=== PATIENT | female | born 1990 | race Caucasian/White ===

== ENCOUNTER 2021-07-16 18:59 | Emergency (ER) | payer OTHER, SELFPAY ==
--- OUTSIDE RECORDS SUMMARY | 2021-07-16 19:02 | XMS REPORT | Continuity of Care Document ---
:1990 Author Organization [facility] t Address [address] [place] [address] Care Team Providers Name Role Phone PAPO Primary Care Physician RAJAN Attending Clinician Unavailable Bryant VILLARREAL Attending Clinician Unavailable RAJAN Admitting Clinician Unavailable Bryant VILLARREAL Admitting Clinician Unavailable Problems Condition Condition Condition Status Onset Resolution Last Treating Co mments Source Name Details Category Date Date Treatment Clinician Date Gastritis Gastritis Problem [facility] (LUF/LI V/SA) Nausea and Nausea and Problem Active [facility] vomiting [facility] (LUF/LI V/SA) Knee pain Knee pain Problem [facility] (LUF/LI V/SA) Leukocytos Leukocytos Problem Active [facility] is is [facility] (LUF/LI V/SA) Ureteric Ureteric Problem [facility] (LUF/LI V/SA) Chest wall Chest wall Problem Active [facility] pain pain 9[facility]02 [facility] (LUF/LI V/SA) Acute Acute Problem Active [facility] urinary urinary [facility]10 [facility] - tract tract 03:00: Memoria infection infection 00 l (LUF/LI V/SA) Sprain of Sprain of Problem Active 2014-07 [facility] ankle ankle 0-25 [facility] - [facility]: [facility] (LUF/LI V/SA) [facility] - following following 00:00: Santy huey previous previous 00 l (LUF/L I section section V/SA) Abdominal Abdominal Problem Complet I St pain in pain in ed 11-14 [facility] - 00:[facility]: Santy huey 00 l (LUF/LI V/SA) Chest pain Chest pain Problem Active [facility] - [facility] (LUF/LI V/SA) Allergies, Adverse Reactions, Alerts This patient has no known allergies or adverse reactions. Social History Smoking Status Start Date Stop Date Source Never smoker [facility] ([facility]U/[facility]) Medications Ordered Filled Start Stop Current Ordering Indication Dosage Frequency Signature Comments Components Source Medication Medication Date Date Medication? Clinician (SIG) Name Name ondansetron ondansetron Yes 4mg 3xD [facility] (LUF/LI V/SA) ondansetron ondansetron Yes 4mg 3xD orally [facility] - hours as Memoria needed. l (for (LUF/LI nausea/vom V/SA) iting) ondansetron ondansetron No 4mg 3xD orally [facility] - hours [facility] l (LUF/LI V/SA) tramadol tramadol No 50mg 4xD orally [facility] hydrochlori hydrochlori every 6 [facility] - de 50 MG de 50 MG hours as Mem oria Oral Tablet Oral Tablet needed. l (as needed (LUF/LI for pain) V/SA) Immunizations Ordered Immunization Filled Immunization Date Status Commen ts Source Name Name tetanus toxoid, tetanus toxoid, 2012-12-31 Completed [facility] - reduced diphtheria reduced diphtheria 13:20:00 [facility] toxoid, and toxoid, and (LUF/MARILU/SA) acellular pertussis acellular pertussis vaccine, adsorbed vaccine, adsorbed Vital Signs Vital Name Observation Time Observation Value Comments Source Pulse Rate 2020-12-25 09:01:00 86 /min [facility] L [facility] (LUF/MARILU/SA) Respiratory Rate 2020-12-25 09:01:00 18 /min [facility] (LUF/MARILU/SA) O2% BldC Oximetry 2020-12-25 09:01:00 100 % [facility] (LUF/MARILU/SA) BP Systolic 2020-12-25 09:01:00 109 mm[Hg] [facility] (LUF/MARILU/SA) BP Diastolic 2020-12-25 09:01:00 67 mm[Hg] [facility] (LUF/MARILU/SA) Body Temperature 2020-12-25 07:51:00 97.7 [degF] [facility] (LUF/MARILU/SA) Height 2020-12-25 07:51:00 62 [in_i] [facility] (LUF/MARILU/SA) Weight 2020-12-25 07:51:00 165 [lb_av] [facility] (LUF/MARILU/SA) BMI (Body Mass Index) 2020-12-25 07:51:00 30.3 kg/m2 [facility] (LUF/MARILU/SA) Body Temperature 2020-12-10 18:00:00 98 [degF] [facility] (LUF/MARILU/SA) Pulse Rate 2020-12-10 17:30:00 70 /min [facility] (LUF/MARILU/SA) O2% BldC Oximetry 2020-12-10 17:30:00 100 % [facility] (LUF/MARILU/SA) BP Systolic 2020-12-10 17:30:00 105 mm[Hg] [facility] (LUF/MARILU/SA) BP Diastolic 2020-12-10 17:30:00 74 mm[Hg] [facility] (LUF/MARILU/SA) Respiratory Rate 2020-12-10 13:13:00 18 /min [facility] (LUF/MARILU/SA) Height 2020-12-10 13:13:00 63 [in_i] [facility] (LUF/MARILU/SA) Weight 2020-12-10 13:13:00 78.3 kg [facility] (LUF/MARILU/SA) BMI (Body Mass Index) 2020-12-10 13:13:00 30.5 kg/m2 [facility] (LUF/MARILU/SA) Procedures Procedure Date / Time Performed Performing Clinician [facility] e SECTION WITH 2014-08-19 08:59:00 [facility] BILATERAL TUBAL [facility] (Bilateral) (LUF/MARILU/SA) SECTION 2012-12-31 08:09:00 [facility] s [facility] (LUF/MARILU/SA) Low cervical [facility] [place] es - section [facility] (LUF/MARILU/SA) Appendectomy [facility] (LUF/MARILU/SA) EXP LAP [facility] (LUF/MARILU/SA) Encounters Start End Encounter Admission Attending Care Care Encounter Source Date/Time Date/Time Type Type Clinicians Facility Department ID 2020-12-25 2020-12-25 GASTRITIS ADDIS CULVER [facility] [id number] 07:40:00 09:31:00 UNS PILI crane - WITHOUT N, [address] [place], [place] [address] 2020-12-25 2020-12-25 Inpatient [facility] [id number] [facility] 00:[facility]:00 PILI BRAUN [id number] [facility], [id number] [place], [place] [address] 2020-12-10 2020-12-10 FOLLICULAR ADDIS CULVER [facility] [id number] 12:47:00 18:00:00 CYST OF PILI crane - LEFT OVARY N, [address] [place], ([place] [address] 2020-12-10 2020-12-10 Inpatient [facility] [id number] 00:[facility]:00 00:00:00 PILI BRAUN [id number] [facility], [id number] [id number] [place], ([place] [address] 2020-12-10 2020-12-10 Inpatient [facility] [id number] 00:00:00 00:00:00 PILI BRAUN [id number] [facility], [id number] [place], ([place] [address] Results Test Description Test Time Test Comments Results Result Comments Source URINALYSIS WITH MICROSCOPIC 2020-12-25 09:10:00 Test Item Value Reference Range Interpretation Comme nts Color (test code = UCOLR) Yellow Clarity (test code = UCLAR) Sl Cloudy Glucose (test code = UGLUC) NEGATIVE NEGATIVE N Bilirubin (test code = UBILI) SMALL NEGATIVE A Ketones (test code = UKET) 15 NEGATIVE A Specific [place] (test code = >=1.030 1.005-1.030 A USPGR) Blood (test code = UBLD) NEGATIVE NEGATIVE N PH (test code = UPH) 5.5 4.5-8.0 A Protein (test code = UPROT) TRACE NEGATIVE A Urobilinogen (test code = U 0.2 See_Comment N [Automated message] The UROB) system which ge nerated this result transmit roula reference range: 0.2. The reference range was not u sed to interpret this result as normal/abnormal . Nitrite (test code = UNITR) NEGATIVE NEGATIVE N Leukocyte Esterase (test code SMALL NEGATIVE A = ULEUK) WBC (test code = WBCUR) 10-20 0-5 A RBC (test code = RBCUR) 0-10 0-5 A Epithial Cells (test code = U 10-20 0-10 A EPI) Mucous (test code = UMUC) Trace None Seen A Bacteria (test code = UBACT) 1+ None Seen,Trace A [id number] 08:53:00 Test Item Value Reference Range Interpretation Comments Glucose (test code 132 mg/dl 75-110 H = GLU) BUN (test code = 18.0 mg/dl 6.0-17.0 H BUN) Creatinine (test 0.7 mg/dl 0.4-1.2 code = CREA) Sodium (test code = 137 mmol/l 137-145 NA) Potassium (test 3.7 mmol/l 3.5-5.0 code = K) Chloride (test code 108 mmol/l 98-107 H = CL) CO2 (test code = 23 mmol/l 22-30 CO2) Calcium (test code 8.6 mg/dl 8.4-10.2 = CALC) T Protein (test 8.1 gm/dl 5.1-8.7 code = TP) Albumin (test code 3.7 gm/dl 3.5-4.6 = ALB) A/G Ratio (test 0.8 % 1.1-2.2 L code = AGRAT) AST (SGOT) (test 10 U/L 11-36 L code = AST) ALT (SGPT) (test 28 U/L 11-40 code = ALT) Alkaline Phos (test 74 U/L 47-114 code = ALKP) Total Bilirubin 0.7 mg/dl 0.2-1.2 (test code = TBIL) Globulin (test code 4.4 gm/dl 2.3-3.5 H = GLOBU) Calcium, Corrected 8.8 mg/dl 8.4-10.2 Various f ormulas exist (test code = for corrected s rui CALCCORR) calcium results , each yielding differ ent values. This corrected resul t was based on the fo rmula: Corrected Calci um = SerumCalcium + [0.8 * ( 4 - SerumAlbu min)] EGFR if >60 [place] (test code mL/min/1.73m\\ = EGFRAA) S\\2 EGFR if Non- >60 Estimate d Glomerular [place] (test code mL/min/1.73m\\ Filtrat ion Rate (eGFR) = EGFRNA) S\\2 Reference Inter vals Decision Points for 18 years and older and average body ma ss: >= 60 Does not exc lude kidney disease. 30 - 59 Suggests modera te chronic kidney disease and indicat es the need for furthe r investigation including asses sment of proteinuria and cardiovascular factors. < 30 Usually in dicates a need for refe rral for assessment and management of c hronic kidney failure. [id number] 08:53:00 Test Item Value Reference Range Interpretation Comments Lipase (test code = LIPA) 150 U/L 8-223 TEST, Urine [id number] 08:41:00 Test Item Value Reference Range Interpretation Comments (Urine) (test code = Negative PREGU) CBC WITH AUTO [id number] 08:30:00 Test Item Value Reference Range Interpretation Comments WBC (test code = 11.93 4.80-10.80 H WBC) 10\\S\\3/ul RBC (test code = 5.08 10\\S\\6/ul 4.20-5.40 RBC) Hemoglobin (test 14.2 gm/dl 12.0-14.0 H code = HGB) Hematocrit (test 42.7 % 37.0-47.0 code = HCT) MCV (test code = 84.1 fL 81.0-99.0 MCV) MCH (test code = 28.0 pg 27.0-31.0 MCH) MCHC (test code = 33.3 gm/dl 33.0-37.0 MCHC) RDW (test code = 12.5 % 11.5-14.5 RDWVC) Platelet (test code 234 10\\S\\3/ul 130-400 = PLT) MPV (test code = 11.6 fL 7.4-10.4 A "NOT MEASUR ED" MPV) RESULTS ARE DIS PLAYED WHEN THE INSTRU MENT HAS A SUPPRESSE D OR UNREPORTABLE RE SULT. THIS WILL MOST OFTEN HAPPEN WITH THE MPV WHEN THERE IS A N ABNORMAL PLATEL ET DISTRIBUTION DU E TO A CRITICAL LOW VA LUE OR PLATELET CLUMPI NG. THE RDW MAY BE SUPPRESSED IF T HERE ARE MULTIPLE PE AKS PRESENT ON THE RBC HISTOGRAM. IN THIS CASE, A MANUAL REVIEW OF THE SLIDE WI LL BE PERFORMED, AND RBC MORPHOLOGY WILL BE NOTED ON THE RE PORT. NE% (test code = 89.0 % 42.0-75.0 H NE) LY% (test code = 4.2 % 13.0-42.0 L LY) MO% (test code = 5.2 % 4.0-14.0 MO) EO% (test code = 0.8 % 1.0-5.0 L EO) BA% (test code = 0.4 % 0.0-3.0 BA) IG% (test code = 0.4 % 0.0-0.4 IG%) US INTRAVAGINAL [id number] 18:19:47 [facility])Name: MAT CHRISTINA : 1990 Sex: FEXAM: Transabdominal and Transvaginal Pelvic UltrasoundINDICATION: [id number]: Ab dominal [id number]: NoneTECHNIQUE: Grayscale transverse and sagittal transabdominal and transvaginalimages were obtained of the pelvis. Transvaginal imaging was medically necessaryto better evaluate the endometrium and the adnexa.CLINICAL HISTORY:30 year old A 1 last menstrual period: Approximately 2 weeks ago .FINDINGS:UterusOrientation: Normal.Size: 9.1 x 4.5 x 3.5 cm, .Mass: None.Cervix: Normal.Endometrium:Thickness: 0.8 cm, Normal.Appearance: Homogeneous echotexture without focal thickening.Right ovary:Size: 2.5 x 2.3 x 1.7 cmMass/Cyst: Follicle seen measuring 1 cm.Left ovary:Size: 2.5 x 2.4 x 1.9 cmMass/Cyst: Follicle noted measuring 1.6 cm with thin septation. Anotherfollicles seen measuring 1.5 cm. These are likely physiologic.Adnexa: [id number]-dp-cpq: No significant free fluidIMPRESSION:Unremarkable pelvic ultrasound exam.Ovary volume: L x W x H x 0.523Normal = 5 - 15 mLFollicle - simple < 2.5 cmComplex cyst - any size<30 yo no flow - hemorrhagic>30 FollowPostmeno - bleeding >8mm ABNLPostmeno + bleeding <2mm atrophy and > 5mm random bxNeg bx then sonohysFibroid > 10cm or hetero give sarc disclaimerThis final report was electronically signed by Dale Pressley 12/10/2020 6:14 PMDictated By: DALE PRESSLEYDate: 12/10/2020 18:14US PELVIS [id number] 17:46:01 [facility]Name: MAT CHRISTINA : 1990 Sex: FEXAM: Transabdominal and Transvaginal Pelvic UltrasoundINDICATION: [id number]: Pain in .0278.3NCOMPARISON: NoneTECHNIQUE: Grayscale transverse and sagittal transabdominal and transvaginalimages were obtained of the pelvis. Transvaginal imaging was medically necessaryto better evaluate the endometrium and the adnexa.CLINICAL HISTORY:30 year old A 1 last menstrual period: Approximately 2 weeks ago .FINDINGS:UterusOrientation: Normal.Size: 9.1 x 4.5 x 3.5 cm, .Mass: None.Cervix: Normal.Endometrium:Thickness: 0.8 cm, Normal.Appearance: Homogeneous echotexture without focal thickening.Right ovary:Size: 2.5 x 2.3 x 1.7 cmMass/Cyst: Follicle seen measuring 1 cm.Left ovary:Size: 2.5 x 2.4 x 1.9 cmMass/Cyst: Follicle noted measuring 1.6 cm with thin septation. Anotherfollicles seen measuring 1.5 cm. These are likely physiologic.Adnexa: ZxnyipUtb-je-lhq: No significant free fluidIMPRESSION:Unremarkable pelvic ultrasound exam.Ovary volume: L x W x H x 0.523Normal = 5 - 15 mLFollicle - simple < 2.5 cmComplex cyst - any size<30 yo no flow - hemorrhagic>30 FollowPostmeno - bleeding >8mm ABNLPostmeno + bleeding <2mm atrophy and > 5mm random bxNeg bx then sonohysFibroid > 10cm or hetero give sarc disclaimerThis final report was electronically signed by Dale Pressley 12/10/2020 5:40 PMDictated By: DALE PRESSLEYDate: 12/10/2020 17:40URINALYSIS WITH [id number] 15:44:00 Test Item Value Reference Range Interpretation Comments Color (test code = Lt. Yellow UCOLR) Clarity (test code = Clear UCLAR) Glucose (test code = NEGATIVE NEGATIVE N UGLUC) Bilirubin (test code = NEGATIVE NEGATIVE N UBILI) Ketones (test code = NEGATIVE NEGATIVE N UKET) Specific [place] (test 1.020 1.005-1.030 A code = USPGR) Blood (test code = NEGATIVE NEGATIVE N UBLD) PH (test code = UPH) 7.0 4.5-8.0 A Protein (test code = NEGATIVE NEGATIVE N UPROT) Urobilinogen (test 0.2 See_Comment N [Automat ed message] code = U UROB) The system [employer] generated this result transmitted ref erence range: 0.2. The reference range was not used to int erpret this result as normal/abnormal . Nitrite (test code = NEGATIVE NEGATIVE N UNITR) Leukocyte Esterase SMALL NEGATIVE A (test code = ULEUK) WBC (test code = 5-10 0-5 A WBCUR) RBC (test code = None Seen 0-5 A RBCUR) Epithial Cells (test 0-5 0-10 A code = U EPI) Bacteria (test code = Trace None Seen,Trace N UBACT) TEST, Urine [id number] 15:32:00 Test Item Value Reference Range Interpretation Comments (Urine) (test code = Negative PREGU) [id number] 15:17:00 Test Item Value Reference Range Interpretation Comments Lipase (test code = LIPA) 172 U/L 8-223 [id number] 15:17:00 Test Item Value Reference Range Interpretation Comments Glucose (test code 84 mg/dl 75-110 = GLU) BUN (test code = 15.0 mg/dl 6.0-17.0 BUN) Creatinine (test 0.7 mg/dl 0.4-1.2 code = CREA) Sodium (test code = 138 mmol/l 137-145 NA) Potassium (test 4.0 mmol/l 3.5-5.0 code = K) Chloride (test code 108 mmol/l 98-107 H = CL) CO2 (test code = 26 mmol/l 22-30 CO2) Calcium (test code 8.8 mg/dl 8.4-10.2 = CALC) T Protein (test 8.1 gm/dl 5.1-8.7 code = TP) Albumin (test code 3.8 gm/dl 3.5-4.6 = ALB) A/G Ratio (test 0.9 % 1.1-2.2 L code = AGRAT) AST (SGOT) (test 18 U/L 11-36 code = AST) ALT (SGPT) (test 32 U/L 11-40 code = ALT) Alkaline Phos (test 75 U/L 47-114 code = ALKP) Total Bilirubin 0.4 mg/dl 0.2-1.2 (test code = TBIL) Globulin (test code 4.3 gm/dl 2.3-3.5 H = GLOBU) Calcium, Corrected 9.0 mg/dl 8.4-10.2 Various f ormulas exist (test code = for corrected s rui CALCCORR) calcium results , each yielding differ ent values. This corrected resul t was based on the fo rmula: Corrected Calci um = SerumCalcium + [0.8 * ( 4 - SerumAlbu min)] EGFR if >60 [place] (test code mL/min/1.73m\\ = EGFRAA) S\\2 EGFR if Non- >60 Estimate d Glomerular [place] (test code mL/min/1.73m\\ Filtrat ion Rate (eGFR) = EGFRNA) S\\2 Reference Inter vals Decision Points for 18 years and older and average body ma ss: >= 60 Does not exc lude kidney disease. 30 - 59 Suggests modera te chronic kidney disease and indicat es the need for furthe r investigation including asses sment of proteinuria and cardiovascular factors. < 30 Usually in dicates a need for refe rral for assessment and management of c hronic kidney failure. CBC WITH AUTO [id number] 15:07:00 Test Item Value Reference Range Interpretation Comments WBC (test code = 7.39 10\\S\\3/ul 4.80-10.80 WBC) RBC (test code = 4.99 10\\S\\6/ul 4.20-5.40 RBC) Hemoglobin (test 14.0 gm/dl 12.0-14.0 code = HGB) Hematocrit (test 42.9 % 37.0-47.0 code = HCT) MCV (test code = 86.0 fL 81.0-99.0 MCV) MCH (test code = 28.1 pg 27.0-31.0 MCH) MCHC (test code = 32.6 gm/dl 33.0-37.0 L MCHC) RDW (test code = 12.2 % 11.5-14.5 RDWVC) Platelet (test code 253 10\\S\\3/ul 130-400 = PLT) MPV (test code = 11.4 fL 7.4-10.4 A "NOT MEASUR ED" MPV) RESULTS ARE DIS PLAYED WHEN THE INSTRU MENT HAS A SUPPRESSE D OR UNREPORTABLE RE SULT. THIS WILL MOST OFTEN HAPPEN WITH THE MPV WHEN THERE IS A N ABNORMAL PLATEL ET DISTRIBUTION DU E TO A CRITICAL LOW VA LUE OR PLATELET CLUMPI NG. THE RDW MAY BE SUPPRESSED IF T HERE ARE MULTIPLE PE AKS PRESENT ON THE RBC HISTOGRAM. IN THIS CASE, A MANUAL REVIEW OF THE SLIDE WI LL BE PERFORMED, AND RBC MORPHOLOGY WILL BE NOTED ON THE RE PORT. NE% (test code = 62.3 % 42.0-75.0 NE) LY% (test code = 27.7 % 13.0-42.0 LY) MO% (test code = 7.3 % 4.0-14.0 MO) EO% (test code = 1.6 % 1.0-5.0 EO) BA% (test code = 0.8 % 0.0-3.0 BA) IG% (test code = 0.3 % 0.0-0.4 IG%) TEST, Urine [id number] 18:47:00 Test Item Value Reference Range Interpretation Comments (Urine) (test code = Negative PREGU) If a specimen is collected by a nurse, then you MUST fill out the Collected and Collected By louis CULTURE, [id number] 07:51:00 Specimen: Urine SpecimensCollected: 09/27/2016 13:15 Status: Final Last Updated: 09/29/2016 07:51 Culture Result (Final) (Final) Moderate Mixed Body Kassy Isolated No Pathogens IsolatedCBC WITH AUTO [id number] 17:14:00 Test Item Value Reference Range Interpretation Comments WBC (test code = WBC) 19.7 k/ul 4.8-10.8 H RBC (test code = RBC) 4.85 4.20-5.40 Millions/ul Hemoglobin (test code 13.3 gm/dl 12.0-14.0 = HGB) Hematocrit (test code 39.9 % 37.0-47.0 = HCT) MCV (test code = MCV) 82.3 fL 81.0-99.0 MCH (test code = MCH) 27.3 pg 27.0-31.0 MCHC (test code = 33.2 gm/dl 33.0-37.0 MCHC) RDW (test code = 13.7 % 11.5-14.5 RDWVC) Platelet (test code = 195 k/ul 130-400 PLT) MPV (test code = MPV) 10.3 fL 7.4-10.4 NE% (test code = NE) 91.8 % 42.0-75.0 H LY% (test code = LY) 5.7 % 13.0-42.0 L MO% (test code = MO) 2.1 % 4.0-14.0 L EO% (test code = EO) 0.2 % 1.0-3.0 L BA% (test code = BA) 0.2 % 1.0-3.0 L NRBC, Auto (test code 0 /100WBC 0-0 = NRBC_AUTO) Neutrophils (test 87 % 42-75 H The value no value code = NEUTR) originally rel eased by on ############### was changed to 87 b y [id number] on 09/27/2016 17:1 4 Bands (test code = 2 % 0-2 The value no value BANDM) originally rele ased by on ############### was changed to 2 by [id number] on 09/27/2016 17:1 4 Lymphocytes (test 7 % 13-42 L The value no value code = LYMPH) originally rel eased by on ############### was changed to 7 by [id number] on 09/27/2016 17:1 4 Monocytes (test code 3 % 4-14 L The col[place] ue no value = MONOS) originally rele ased by on ############### was changed to 3 by [id number] on 09/27/2016 17:1 4 Basophils (test code 1 % 0-1 The [place] no value = BASO) originally rele ased by on ############### was changed to 1 by [id number] on 09/27/2016 17:1 4 LIPASE, [id number] 15:59:00 Test Item Value Reference Range Interpretation Comments Lipase (test code = LIPA) 139 U/L 8-223 AMYLASE, [id number] 15:59:00 Test Item Value Reference Range Interpretation Comments Amylase (test code = AMYL) 98 U/L 12-103 [id number] 15:59:00 Test Item Value Reference Range Interpretation Comments Glucose (test code 139 mg/dl 75-110 H = GLU) BUN (test code = 14.0 mg/dl 6.0-17.0 BUN) Creatinine (test 0.6 mg/dl 0.4-1.2 code = CREA) Sodium (test code = 140 mmol/l 137-145 NA) Potassium (test 4.2 mmol/l 3.5-5.0 code = K) Chloride (test code 103 mmol/l 98-107 = CL) CO2 (test code = 25 mmol/l 22-30 CO2) Anion Gap (test 12 code = GAP) Calcium (test code 8.5 mg/dl 8.4-10.2 = CALC) T Protein (test 8.2 gm/dl 5.1-8.7 code = TP) Albumin (test code 4.4 gm/dl 3.5-4.6 = ALB) A/G Ratio (test 1.2 % 1.1-2.2 code = AGRAT) AST (SGOT) (test 32 U/L 11-36 code = AST) ALT (SGPT) (test 49 U/L 11-40 H code = ALT) Alkaline Phos (test 70 U/L 47-114 code = ALKP) Total Bilirubin 0.6 mg/dl 0.2-1.2 (test code = TBIL) Globulin (test code 3.8 gm/dl 2.3-3.5 H = GLOBU) Calcium, Corrected 8.2 mg/dl 8.4-10.2 L Various f ormulas exist (test code = for corrected s rui CALCCORR) calcium results , each yielding differ ent values. This corrected resul t was based on the fo rmula: Corrected Calci um = SerumCalcium + [0.8 * ( 4 - SerumAlbu min)] EGFR if >60 [place] (test code mL/min/1.73m\\ = EGFRAA) S\\2 EGFR if Non- >60 Estimate d Glomerular [place] (test code mL/min/1.73m\\ Filtrat ion Rate (eGFR) = EGFRNA) S\\2 Reference Inter vals Decision Points for 18 years and older and average body ma ss: >= 60 Does not exc lude kidney disease. 30 - 59 Suggests modera te chronic kidney disease and indicat es the need for furthe r investigation including asses sment of proteinuria and cardiovascular factors. < 30 Usually in dicates a need for refe rral for assessment and management of c hronic kidney failure. TEST, Serum [id number] 15:59:00 Test Item Value Reference Range Interpretation Comments (Serum) (test code = Negative Negative N PREGS) URINALYSIS WITH [id number] 14:39:00 Test Item Value Reference Range Interpretation Comments Color (test code = Lt. Yellow UCOLR) Clarity (test code = CLEAR UCLAR) Glucose (test code = NEGATIVE NEGATIVE N UGLUC) Bilirubin (test code = NEGATIVE NEGATIVE N UBILI) Ketones (test code = NEGATIVE NEGATIVE N UKET) Specific [place] (test 1.015 1.005-1.030 A code = USPGR) Blood (test code = UBLD) MODERATE NEGATIVE A PH (test code = UPH) 7.0 4.5-8.0 A Protein (test code = NEGATIVE NEGATIVE N UPROT) Urobilinogen (test code 0.2 >0.2 N = U UROB) Nitrite (test code = NEGATIVE NEGATIVE N UNITR) Leukocyte Esterase (test NEGATIVE NEGATIVE N code = ULEUK) WBC (test code = WBCUR) 0-3 0-5 A RBC (test code = RBCUR) 20-30 0-5 A Epithial Cells (test 5-10 0-10 A code = U EPI) Mucous (test code = Trace None Seen A UMUC) Bacteria (test code = Trace None Seen,Trace N UBACT) Crystals Urine (test Trace Amorphous None Seen A code = URCRYS) Sediment
[2021-07-16 21:03] LABS: SARS-COV-2 RT PCR POSITIVE (NEGATIVE)
[2021-07-16] MEDS ORDERED: ACETAMINOPHEN 500 MG TAB ONE (21:03)
[2021-07-16] MEDS ORDERED: BENZONATATE 100 MG CAP PO ONE (21:11)
--- NOTE | 2021-07-16 21:56 | ER ---
Nurse's Notes [facility] Name: Melony Borjas Age: 31 yrs Sex: Female : 1990 Arrival Date: 07/16/2021 Time: 19:00 Bed 11 Private MD: Diagnosis: SARS-associated coronavirus as the cause of diseases classified elsewhere Presentation: 07/16 19:12 Chief complaint: Patient states: sore throat, body aches, headache, started yesterday. iw Coronavirus screen: Ebola Screen: Patient negative for fever greater than or equal to 101.5 degrees Fahrenheit, and additional compatible Ebola Virus Disease symptoms Patient denies exposure to infectious person. Patient denies travel to an Ebola-affected area in the 21 days before illness onset. No symptoms or risks identified at this time. Initial Sepsis Screen: Does the patient meet any 2 criteria? No. Patient's initial sepsis screen is negative. Does the patient have a suspected source of infection? No. Patient's initial sepsis screen is negative. Risk Assessment: Do you want to hurt yourself or someone else? Patient reports no desire to harm self or others. Onset of symptoms was July 15, 2021. 19:12 Method Of Arrival: Ambulatory iw 19:12 Acuity: RUSTY 4 iw 19:16 Acuity: RUSTY 3 iw Triage Assessment: 19:15 General: Appears in no apparent distress. Behavior is calm. iw Historical: - Allergies: 19:14 Demerol; iw - PMHx: 19:15 GI issues; iw - PSHx: 19:15 section; iw 19:15 Appendectomy; iw - Immunization history:: Client reports having NOT received the Covid vaccine. - Social history:: Smoking status: . Screenin:15 Abuse screen: Denies threats or abuse. Denies injuries from another. Nutritional iw screening: No deficits noted. Tuberculosis screening: No symptoms or risk factors identified. Fall Risk None identified. Assessment: 21:00 General: Appears in no apparent distress. General: Reports chills for fever for feeling iw ill for fatigue for. Neuro: Level of Consciousness is awake, alert, obeys commands, Oriented to person, place, time, situation, Moves all extremities. Full function. Cardiovascular: Patient's skin is warm and dry. Respiratory: Respiratory effort is even, unlabored, Respiratory pattern is regular, symmetrical. Derm: Skin is intact, is healthy with good turgor. Musculoskeletal: Range of motion: intact in all extremities. Vital Signs: 19:12 Pulse 130; Resp 18; Temp 100.8; Pulse Ox 99% ; Weight 68.04 kg; Height 5 ft. 3 in. iw (160.02 cm); 19:16 BP 108 / 73; iw 20:44 Temp 101.7(TE); iw 19:12 Body Mass Index 26.57 (68.04 kg, 160.02 cm) iw ED Course: 19:00 Patient arrived in ED. ds1 19:14 Triage completed. iw 19:15 Arm band placed on. iw 21:02 Robert Marie PA is PHCP. cp 21:02 Julien Mittal MD is Attending Physician. cp 21:10 Tiffanie Verduzco, KEISHA is Primary Nurse. iw 22:10 No provider procedures requiring assistance completed. Patient did not have IV access iw during this emergency room visit. Administered Medications: 21:10 Drug: Tylenol 1000 mg Route: PO; iw 22:00 Follow up: Response: No adverse reaction iw 21:12 Drug: Tessalon Perle (benzonatate) 200 mg Route: PO; iw 21:35 Follow up: Response: No adverse reaction iw Outcome: 21:56 Discharge ordered by MD. cp 22:11 Discharged to home ambulatory. iw 22:11 Condition: good 22:11 Discharge instructions given to patient, Instructed on discharge instructions, follow up and referral plans. Demonstrated understanding of 22:12 Patient left the ED. iw Signatures: Hanh Westbrook ds1 Tiffanie Verduzco RN RN iw Robert Marie PA PA cp Corrections: (The following items were deleted from the chart) 19:15 19:12 Resp 18bpm; Pulse Ox 99%; Temp 99.4F; 68.04 kg; Height 5 ft. 3 in.; BMI: 26.5; iw iw
--- NOTE | 2021-07-16 21:57 | EDPHYS ---
Physician Documentation [facility] Name: Melony Borjas Age: 31 yrs Sex: Female : 1990 Arrival Date: 07/16/2021 Time: 19:00 Bed 11 Private MD: ED Physician Julien Mittal HPI: 07/16 21:30 This 31 yrs old Female presents to ER via Ambulatory with complaints of Fever. cp 21:30 The patient reports fever, with an emergency department temperature of 101.7 degrees cp Fahrenheit. Onset: The symptoms/episode began/occurred yesterday. Associated signs and symptoms: Pertinent positives: cough, headache, runny nose, sore throat, body aches. Severity of symptoms: in the emergency department the symptoms are unchanged despite home interventions. Historical: - Allergies: 19:14 Demerol; iw - PMHx: 19:15 GI issues; iw - PSHx: 19:15 section; iw 19:15 Appendectomy; iw - Immunization history:: Client reports having NOT received the Covid vaccine. - Social history:: Smoking status: . ROS: 21:33 Constitutional: Positive for body aches, fever, Negative for poor PO intake. cp 21:33 ENT: Positive for sore throat, Negative for drainage from ear(s), ear pain, difficulty cp swallowing, difficulty handling secretions. 21:33 Respiratory: Positive for cough, Negative for wheezing. 21:33 Abdomen/GI: Negative for abdominal pain, vomiting, diarrhea, constipation. 21:33 Neuro: Positive for headache, Negative for altered mental status, weakness. 21:33 All other systems are negative. Exam: 21:38 Constitutional: The patient appears in no acute distress, alert, awake, non-toxic, well cp developed, well nourished, febrile. 21:38 Head/Face: Normocephalic, atraumatic. cp 21:38 Eyes: Periorbital structures: appear normal, Conjunctiva: normal, no exudate, no injection, Lids and lashes: appear normal, bilaterally. 21:38 ENT: External ear(s): are unremarkable, Nose: is normal, Mouth: Lips: moist, Oral mucosa: moist, Posterior pharynx: Airway: no evidence of obstruction, patent. 21:38 Neck: Lymph nodes: no appreciated lymphadenopathy. 21:38 Chest/axilla: Inspection: normal. 21:38 Cardiovascular: Rate: tachycardic. 21:38 Respiratory: the patient does not display signs of respiratory distress, Respirations: normal, no use of accessory muscles, no retractions, labored breathing, is not present, Breath sounds: decreased breath sounds, are not appreciated, stridor, is not appreciated, + upper airway congestion. wheezing: is not appreciated. 21:38 Abdomen/GI: Exam negative for discomfort, distension, guarding, Inspection: abdomen appears normal. Vital Signs: 19:12 Pulse 130; Resp 18; Temp 100.8; Pulse Ox 99% ; Weight 68.04 kg; Height 5 ft. 3 in. iw (160.02 cm); 19:16 BP 108 / 73; iw 20:44 Temp 101.7(TE); iw 19:12 Body Mass Index 26.57 (68.04 kg, 160.02 cm) iw MDM: 21:09 Patient medically screened. cp 21:55 Data reviewed: vital signs, nurses notes, lab test result(s). cp 21:55 Differential diagnosis: viral Infection, bacterial infection, URI, bronchitis, cp pneumonia gastroenteritis, meningitis. Counseling: I had a detailed discussion with the patient and/or guardian regarding: the historical points, exam findings, and any diagnostic results supporting the discharge/admit diagnosis, lab results, to return to the emergency department if symptoms worsen or persist or if there are any questions or concerns that arise at home. ED course: VS noted. Patient appears non-toxic and no signs of respiratory distress. Will discharge to home for continued monitoring. 07/16 19:35 Order name: Strep ld1 07/16 19:37 Order name: COVID-19/FLU A+B (Document "Date of Onset" if Symptomatic) ld1 07/16 20:34 Order name: Throat Culture EDMS Administered Medications: 21:10 Drug: Tylenol 1000 mg Route: PO; iw 22:00 Follow up: Response: No adverse reaction iw 21:12 Drug: Tessalon Perle (benzonatate) 200 mg Route: PO; iw 21:35 Follow up: Response: No adverse reaction iw Disposition: 22:00 Chart complete. cp 23:40 Co-signature as Attending Physician, Julien Mittal MD. pkl Disposition Summary: 07/16/21 21:56 Discharge Ordered Location: Home cp Problem: new cp Symptoms: have improved cp Condition: Stable cp Diagnosis - SARS-associated coronavirus as the cause of diseases classified elsewhere cp Followup: cp - With: Private Physician - When: 2 - 3 days - Reason: Worsening of condition Discharge Instructions: - Discharge Summary Sheet cp - COVID-19 cp - Things to Know about the COVID-19 Pandemic - [facility] cp - 10 Things You Can Do to Manage Your COVID-19 Symptoms at Home - [facility] cp - COVID-19: Quarantine vs. Isolation - [facility] cp - Prevent the Spread of COVID-19 if You Are Sick - [facility] cp Forms: - Medication Reconciliation Form cp - Thank You Letter cp - Antibiotic Education cp - Prescription Opioid Use cp - Work release form iw Prescriptions: - Tessalon Perles 100 mg Oral Capsule - take 2 capsule by ORAL route every 8 hours As needed; 30 capsule; Refills: 0, cp Product Selection Permitted Signatures: Dispatcher [employer] Julien Palmer MD MD pkTiffanie Marina RN RN iw Robert Marie PA PA cp
[2021-07-16 22:22] VITALS: BP 108/73
[2021-07-16 22:23] VITALS: O2SAT 99
[2021-07-16 22:24] VITALS: TEMP 101.7
== END 2021-07-16 22:12 | disposition home or self-care (01) ==
LOC: ER 18:59
DX: U07.1 COVID-19 (principal); Z88.5 Allergy status to narcotic agent
CPT/HCPCS: 0240U; 87070; 87081; 99283

== ENCOUNTER 2022-08-27 21:16 | Observation (INO) | payer BC ==
--- OUTSIDE RECORDS SUMMARY | 2022-08-27 21:20 | XMS REPORT | Continuity of Care Document ---
:1990 Author Organization [facility] t Address [address] [place] [address] Care Team Providers Name Role Phone NATALY BARROS Primary Care Physician ADDIS TOLENTINO Attending Clinician Unavailable CLARISSA VILLARREAL Attending Clinician Unavailable ADDIS TOLENTINO Admitting Clinician Unavailable CLARISSA VILLARREAL Admitting Clinician Unavailable Problems Condition Condition Condition Status Onset Resolution Last Treating Co mments Source Name Details Category Date Date Treatment Clinician Date Gastritis Gastritis Problem [facility] (LUF/LI V/SA) Nausea and Nausea and Problem Active [facility] (LUF/LI V/SA) Knee pain Knee pain Problem [facility] l (LUF/LI V/SA) Leukocytos Leukocytos Problem Active [facility] is is [facility] 00:[facility]: [facility]oria [facility] l (LUF/LI V/SA) Ureteric Ureteric Problem [facility] l (LUF/LI V/SA) Chest wall Chest wall Problem Active [facility] pain pain [facility]: Memoria 00 l (LUF/LI V/SA) Acute Acute Problem Active [facility] urinary [facility] tract tract 03:00: Memoria infection infection 00 l (LUF/LI V/SA) Sprain of Sprain of Problem Active 2014-[address] [facility] ankle ankle [facility]25 [facility] 00:[facility]: Memoria 00 l (LUF/LI V/SA) Problem [facility] following following 00:00: Santy huey previous previous 00 l (LUF/L I section section V/SA) Abdominal Abdominal Problem Complet [facility] - [facility]: Santy huey 00 l (LUF/LI V/SA) Chest pain Chest pain Problem [facility] (LUF/LI V/SA) Allergies, Adverse Reactions, Alerts Allergy Allergy Status Severity Reaction(s) Onset Inactive Treating Comm ents Source Name Type Date Date Clinician Sulfa(Beyer DA Active Unknown Rash (Severe [facility] lfonamid Allergic [facility] e Rxn) Memoria Antibiot l ics) (LUF/LI V/SA) Demerol DA Active Mild N[facility]a and [facility] (Severe Adv Memor ia Rxn) l (LUF/LI V/SA) Social History Smoking Status Start Date Stop Date Source Never sm[facility] (LUF/MARILU/SA) Medications Ordered Filled Start Stop Current Ordering Indication Dosage Frequency Signature Comments Components Source Medication Medication Date Date Medication? Clinician (SIG) Name Name ondansetron ondansetron Yes 4mg 3xD [facility] (LUF/LI V/SA) ondansetron ondansetron Yes 4mg 3xD orally [facility] hours as Memoria needed. l (for (LUF/LI nausea/vom V/SA) iting) ondansetron ondansetron No 4mg 3xD orally [facility] hours Memoria l (LUF/LI V/SA) tramadol tramadol No 50mg 4xD orally [facility] hydrochlori hydrochlori [facility] 6 [facility] de 50 MG de 50 MG hours as Mem oria Oral Tablet Oral Tablet needed. l (as needed (LUF/LI for pain) V/SA) Immunizations Ordered Immunization Filled Immunization Date Status Commen ts Source Name Name tetanus toxoid, tetanus toxoid, 2012-12-31 Completed [facility] reduced diphtheria reduced diphtheria 13:20:00 [facility] toxoid, and toxoid, and (LUF/MARILU/SA) acellular pertussis acellular pertussis vaccine, adsorbed vaccine, adsorbed Vital Signs Vital Name Observation Time Observation Value Comments Source Height 2020-12-25 07:51:00 157.48 CM Weight 2020-12-25 07:51:00 74.84 KG Height 2020-12-10 13:13:00 160.02 CM Weight 2020-12-10 13:13:00 78.3 KG Pulse Rate 2020-12-25 09:01:00 86 /min [facility] ([facility]/MARILU/SA) Respiratory Rate 2020-12-25 09:01:00 18 /min [facility] ([facility]/MARILU/SA) O2% BldC Oximetry 2020-12-25 09:01:00 100 % [facility] ([facility]/MARILU/SA) BP Systolic 2020-12-25 09:01:00 109 mm[Hg] [facility] (F/MARILU/SA) BP Diastolic 2020-12-25 09:01:00 67 mm[Hg] [facility] (F/MARILU/SA) Body Temperature 2020-12-25 07:51:00 97.7 [degF] [facility] (F/MARILU/SA) Height 2020-12-25 07:51:00 62 [in_i] [facility] (F/MARILU/SA) Weight 2020-12-25 07:51:00 165 [lb_av] [facility] (F/MARILU/SA) BMI (Body Mass Index) 2020-12-25 07:51:00 30.3 kg/m2 [facility] ([facility]/MARILU/SA) Body Temperature 2020-12-10 18:00:00 98 [degF] [facility] (F/MARILU/SA) Pulse Rate 2020-12-10 17:30:00 70 /min [facility] ([facility]/MARILU/SA) O2% BldC Oximetry 2020-12-10 17:30:00 100 % [facility] (LUF/MARILU/SA) BP Systolic 2020-12-10 17:30:00 105 mm[Hg] [facility] (LUF/MARILU/SA) BP Diastolic 2020-12-10 17:30:00 74 mm[Hg] [facility] (LUF/MARILU/SA) Respiratory Rate 2020-12-10 13:13:00 18 /min [facility] (LUF/MARILU/SA) Height 2020-12-10 13:13:00 63 [in_i] [facility] (LUF/MARILU/SA) Weight 2020-12-10 13:13:00 78.3 kg [facility] (LUF/MARILU/SA) BMI (Body Mass Index) 2020-12-10 13:13:00 30.5 kg/m2 [facility] (LUF/MARILU/SA) Procedures Procedure Date / Time Performed Performing Clinician [facility] e SECTION WITH 2014-08-19 08:59:00 [facility] BILATERAL TUBAL [facility] (Bilateral) (LUF/MARILU/SA) SECTION 2012-12-31 08:09:00 [facility] (LUF/MARILU/SA) Low cervical [facility] es section [facility] (LUF/MARILU/SA) Appendectomy [facility] (LUF/MARILU/SA) EXP LAP [facility] (LUF/MARILU/SA) Encounters Start End Encounter Admission Attending Care Care Encounter Source Date/Time Date/Time Type Type Clinicians Facility Department ID 2020-12-25 2020-12-25 ADDIS JOHNSON [facility] [id number] 07:40:00 09:31:00 [facility] L ukes WITHOUT N, [address], [place] [address] 2020-12-25 2020-12-25 Inpatient [facility] [id number] [facility] 00:[facility]:00 PILI BRAUN [id number] [facility] N, [id number] [id number] [place]PASS, ([place] [address] 2020-12-10 2020-12-10 FOLLICULAR E TOLENTINO, ADDIS [facility] [id number] 12:47:00 18:00:00 CYST OF PILI BRAUN L ukes LEFT OVARY N, [address] [place], ([place] [address] 2020-12-10 2020-12-10 Inpatient [facility] [id number] 00:00:00 00:00:00 PILI BRAUN [id number] [facility], [id number] [id number] [place], ([place] [address] 2020-12-10 2020-12-10 Inpatient [facility] [id number] 00:00:00 00:00:00 PILI BRAUN [id number] [facility] N, [id number] [id number] [place], (LUF[place] [address] Results Test Description Test Time Test Comments Results Result Comments Source URINALYSIS WITH MICROSCOPIC 2020-12-25 09:10:00 Test Item Value Reference Range Interpretation Comme nts Color (test code = UCOLR) Yellow Clarity (test code = UCLAR) Sl Cloudy Glucose (test code = UGLUC) NEGATIVE NEGATIVE N Bilirubin (test code = UBILI) SMALL NEGATIVE A Ketones (test code = UKET) 15 NEGATIVE A Specific [place] (test code = >=1.030 1.005-1.030 A USPGR) [...] code = UBACT) 1+ None Seen,Trace A [facility]53[facility]00 Test Item Value Reference Range Interpretation [...] , each yielding differ ent values. This co rrected result was base d on the formula: Co rrected Calcium = Serum Calcium + [0.8 * ( 4 - SerumAlbumin)] EGFR if >60 [place]aur[place] (test code mL/min/1.73m\\ = EGFRAA) S\\2 EGFR if Non- >60 Estimate d Glomerular [place]aur[place] (test code mL/min/1.73m\\ Filtrat ion Rate (eGFR) = EGFRNA) S\\2 Reference Inter vals Decision Points for 18 years and older and average body ma ss: >= 60 Does not exc lude kidney disease. 30 - 59 Suggests mod erate chronic kidney disease and indicates t he need for further investigation including asses sment of proteinuria and cardiovascular factors. < 30 U sually indicates a nee d for referral for assessment and management of c hronic kidney failure. [facility] 08:53:00 Test Item Value Reference Range Interpretation Comments Lipase (test code = LIPA) 150 U/L 8-223 [facility], Urine [id number] 08:41:00 Test Item Value Reference Range Interpretation Comments (Urine) (test code = Negative PREGU) [facility] WITH AUTO [id number] 08:30:00 Test Item Value Reference Range Interpretation [...] AKS PRESENT ON THE RBC HISTOGRAM. IN T HIS CASE, A MANUAL REVIEW OF THE SLIDE [...] (test code = 0.4 % 0.0-0.4 IG%) [facility] INTRAVAGINAL [id number] 18:19:47 [facility] (LUF/MARILU/SA)Name: MAT CHRISTINA : 1990 Sex: FEXAM: Transabdominal and Transvaginal Pelvic UltrasoundINDICATION: [id number]: Abdominal [id number]: NoneTECHNIQUE: Grayscale transverse and sagittal transabdominal and transvaginalimages were obtained of the pelvis. Transvaginal imaging was medically necessaryto better evaluate theendometrium and the adnexa.CLINICAL HISTORY:30 year old A [...] measuring 1.5 cm. These are likely physiologic.Adnexa: BqinhcMhe-hk-aou: No significant free fluidIMPRESSI ON:Unremarkable pelvic ultrasound exam.Ovary volume: L x W [...] 12/10/2020 6:14 PMDictated By: DALE PRESSLEYDate: 12/10/2020 18:14[facility] PEL[facility] [id number] 17:46:01 [facility] ([facility]Name: MAT CHRISTINA : 1990 Sex: FEXAM: Transabdominal and Transvaginal Pelvic UltrasoundINDICATION: [id number]: Pain in [id number]: NoneTECHNIQUE: Grayscale transverse and sagittal transabdominal and transvaginalimages were obtained of the pelvis. Transvaginal imaging was medically necessaryto better evaluate theendometrium and the adnexa.CLINICAL HISTORY:30 year old A [...] measuring 1.5 cm. These are likely physiologic.Adnexa: BirxfrEkf-gq-fxl: No significant free fluidIMPRESSI ON:Unremarkable pelvic ultrasound exam.Ovary volume: L x W [...] 12/10/2020 5:40 PMDictated By: DALE PRESSLEYDate: 12/10/2020 17:40[facility]INGSTONURINALYSIS WITH [id number] 15:44:00 Test Item Value Reference Range Interpretation Comments Color (test code = Lt. Yellow UCOLR) Clarity (test code = Clear UCLAR) Glucose (test code = NEGATIVE NEGATIVE N UGLUC) Bilirubin (test code = NEGATIVE NEGATIVE N UBILI) Ketones (test code = NEGATIVE NEGATIVE N UKET) Specific [place] (test 1.020 1.005-1.030 A code = USPGR) Blood (test code = NEGATIVE NEGATIVE N UBLD) PH (test code = UPH) 7.0 4.5-8.0 A Protein (test code = NEGATIVE NEGATIVE N UPROT) Urobilinogen (test 0.2 See_Comment N [Automat ed message] code = U UROB) The system [facility] generated this result transmitted ref erence range: [...] code = Trace None Seen,Trace N UBACT) [facility], Urine [id number] 15:32:00 Test Item Value Reference Range Interpretation Comments (Urine) (test code = Negative PREGU) [facility] 15:17:00 Test Item Value Reference Range Interpretation Comments Lipase (test code = LIPA) 172 U/L 8-223 [facility] 15:17:00 Test Item Value Reference Range Interpretation [...] , each yielding differ ent values. This co rrected result was base d on the formula: Co rrected Calcium = Serum Calcium + [0.8 * ( 4 - SerumAlbumin)] EGFR if >60 [place]uan (test code mL/min/1.73m\\ = EGFRAA) S\\2 EGFR if Non- >60 Estimate d Glomerular [place]aur[place] (test code mL/min/1.73m\\ Filtrat ion Rate (eGFR) = EGFRNA) S\\2 Reference Inter vals Decision Points for 18 years and older and average body ma ss: >= 60 Does not exc lude kidney disease. 30 - 59 Suggests mod erate chronic kidney disease and indicates t he need for further investigation including asses sment of proteinuria and cardiovascular factors. < 30 U sually indicates a nee d for referral for assessment and management of c hronic kidney failure. [facility] WITH AUTO [id number] 15:07:00 Test Item Value Reference Range Interpretation [...] AKS PRESENT ON THE RBC HISTOGRAM. IN T HIS CASE, A MANUAL REVIEW OF THE SLIDE [...] (test code = 0.3 % 0.0-0.4 IG%) [facility], Urine [id number] 18:47:00 Test Item Value Reference Range Interpretation Comments (Urine) (test code = Negative PREGU) If a specimen is collected by a nurse, then you MUST fill out the Collected and Collected By louis [facility] CULTURE, [id number] 07:51:00Specimen: Urine SpecimensCollected: 09/27/2016 13:15 Status: Final Last Updated: 09/29/2016 07:51 Culture Result (Final) (Final) Moderate Mixed Body [place] Isolated No Pathogens [facility]MeHow[facility] CenterCB WITH AUTO [id number] 17:14:00 Test Item Value Reference Range Interpretation [...] ############### was changed to 87 b y [id number] on 09/27/2016 17:1 4 Bands (test code = 2 % 0-2 The value no value BANDM) originally rele ased by on ############### was changed to 2 by [id number] on 09/27/2016 17:1 4 Lymphocytes (test 7 % 13-42 L The value no value code = LYMPH) originally rel eased by on ############### was changed to 7 by [id number] on 09/27/2016 17:1 4 Monocytes (test code 3 % 4-14 L The [place] no value = MONOS) originally rele ased by on ############### was changed to 3 by [id number] on 09/27/2016 17:1 4 Basophils (test code 1 % 0-1 The [place] no value = BASO) originally rele ased by on ############### was changed to 1 by [id number] on 09/27/2016 17:1 4 [facility]LIP[facility], [id number] 15:59:00 Test Item Value Reference Range Interpretation Comments Lipase (test code = LIPA) 139 U/L 8-223 [facility] HospitalAMYLASE, [id number] 15:59:00 Test Item Value Reference Range Interpretation Comments Amylase (test code = AMYL) 98 U/L 12-103 [facility]CMP2017-03-09 15:59:00 Test Item Value Reference Range Interpretation [...] , each yielding differ ent values. This co rrected result was base d on the formula: Co rrected Calcium = Serum Calcium + [0.8 * ( 4 - SerumAlbumin)] EGFR if >60 N[place]uan (test code mL/min/1.73m\\ = EGFRAA) S\\2 EGFR if Non- >60 Estimate d Glomerular [place]auruan (test code mL/min/1.73m\\ Filtrat ion Rate (eGFR) = EGFRNA) S\\2 Reference Inter vals Decision Points for 18 years and older and average body ma ss: >= 60 Does not exc lude kidney disease. 30 - 59 Suggests mod erate chronic kidney disease and indicates t he need for further investigation including asses sment of proteinuria and cardiovascular factors. < 30 U sually indicates a nee d for referral for assessment and management of c hronic kidney failure. [facility], Serum [id number] 15:59:00 Test Item Value Reference Range Interpretation Comments (Serum) (test code = Negative Negative N PREGS) [facility] WITH [id number] 14:39:00 Test Item Value Reference Range Interpretation Comments Color (test code = Lt. Yellow UCOLR) Clarity (test code = CLEAR UCLAR) Glucose (test code = NEGATIVE NEGATIVE N UGLUC) Bilirubin (test code = NEGATIVE NEGATIVE N UBILI) Ketones (test code = NEGATIVE NEGATIVE N UKET) Specific [place] (test 1.015 1.005-1.030 A code = USPGR) [...] None Seen A code = URCRYS) Sediment [facility]
[2022-08-27] MEDS ORDERED: NA CHLORIDE 0.9% 1,000 ML ONE (21:42)
[2022-08-27] MEDS ORDERED: IBUPROFEN 400 MG TAB ONE (21:42)
[2022-08-27 22:01] LABS: Hematocrit 38.5 % (36.0-45.0); Lymphocytes % 9.1 % (15.3-44.8); MCV 80.4 fL (80-100); RBC Red Blood Cell Count 4.78 M/uL (3.86-4.86)
[2022-08-27 22:01] LABS: Urine Blood Trace-lysed (Negative); Urine Glucose Negative (Negative); Urine Protein Negative (Negative); Urine pH 6.5 (5.0-7.0)
[2022-08-27 22:13] LABS: BUN Blood Urea Nitrogen 15 mg/dL (7-18); Bicarbonate 27 mmol/L (21-32); Glomerular Filtration Rate 97 ml/min (=/>90); Glucose Level 110 mg/dL (74-106); Potassium 3.8 mmol/L (3.5-5.1); Sodium Level 137 mmol/L (136-145)
[2022-08-27 22:46] LABS: SARS-COV-2 RT PCR NEGATIVE (NEGATIVE)
[2022-08-27 22:56] LABS: Renal Epithelial <5 /HPF (None Seen); Transitional Epithelial <5 /HPF (None Seen); Urine Bacteria <20 /HPF (<20); Urine Mucus Slight /HPF (None Seen); Urine RBC <5 /HPF (None Seen)
[2022-08-28] MEDS ORDERED: NA CHLORIDE 0.9% 1,000 ML ONE ×2 (00:16→01:41)
[2022-08-28 00:48] LABS: NT PRO-BNP 32 pg/mL (<125)
[2022-08-28 01:03] LABS: ALT/SGPT 26 U/L (13-56); AST/SGOT 18 U/L (15-37); Albumin 3.8 g/dL (3.4-5.0); Alkaline Phosphatase 76 U/L (45-117); Bilirubin Total 0.4 mg/dL (0.2-1.0); Protein, Total 8.3 g/dL (6.4-8.2)
[2022-08-28 01:04] LABS: Bilirubin Direct < 0.1 mg/dL (0-0.2)
[2022-08-28 01:10] LABS: Barbiturates NEGATIVE (NEGATIVE); Benzodiazepines NEGATIVE (NEGATIVE); Cocaine NEGATIVE (NEGATIVE); METHAMPHETAM NEGATIVE (NEGATIVE); Methadone NEGATIVE (NEGATIVE); Opiates NEGATIVE (NEGATIVE); Phencyclidine NEGATIVE (NEGATIVE); THC Cannibis NEGATIVE (NEGATIVE)
[2022-08-28] MEDS ORDERED: NA CHLORIDE 0.9% 250 ML ONE (01:41)
[2022-08-28] MEDS ORDERED: CEFTRIAXONE 2000 MG/VIAL ONE (01:41)
[2022-08-28] MEDS ORDERED: TENECTEPLASE 50 MG/10 ML VIAL IV ONE (01:41)
[2022-08-28] MEDS ORDERED: VANCOMYCIN 1 GM/VIAL ONE (01:41)
[2022-08-28] MEDS ORDERED: FOLIC ACID 5 MG/ML VIAL ONE (01:56)
--- NOTE | 2022-08-28 02:05 | EDPHYS ---
Physician Documentation [facility] Name: Melony Borjas Age: 32 yrs Sex: Female : 1990 Arrival Date: 08/27/2022 Time: 21:18 Bed 13 Private MD: ED Physician Robert Tijerina HPI: 08/27 22:44 This 32 yrs old Female presents to ER via Ambulatory with complaints of Headache, kb Chills. 22:44 Pt reports headache and chills that started this evening. kb 22:45 The patient complains of pain to the top of head. The patient describes the headache as kb throbbing. Onset: The symptoms/episode began/occurred today. Associated signs and symptoms: Pertinent positives: fever. Severity of symptoms: At its worst the pain was moderate, in the emergency department the pain is unchanged. Headache History: Denies prior headaches. The symptoms are alleviated by nothing. the symptoms are aggravated by nothing. The patient has not experienced similar symptoms in the past. The patient has not recently seen a physician. 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 - Social history:: Smoking status: unknown. ROS: 22:44 Respiratory: Negative for shortness of breath, cough, wheezing, and pleuritic chest kb pain. 22:44 Constitutional: Positive for body aches, chills. 22:44 Neuro: Positive for headache. 22:44 All other systems are negative. Exam: 22:03 Constitutional: This is a well developed, well nourished patient who is awake, alert, kb and in no acute distress. Head/Face: Normocephalic, atraumatic. ENT: Moist Mucous membranes Cardiovascular: Regular rate and rhythm with a normal S1 and S2. No gallops, murmurs, or rubs. No pulse deficits. Respiratory: Respirations even and unlabored. No increased work of breathing. Talking in full sentences Abdomen/GI: Soft, non-tender. No distention Skin: Warm, dry with normal turgor. Normal color. MS/ Extremity: Pulses equal, no cyanosis. Neurovascular intact. Full, normal range of motion. Neuro: Awake and alert, GCS 15, oriented to person, place, time, and situation. Moves all extremities. Normal gait. Psych: Awake, alert, with orientation to person, place and time. Behavior, mood, and affect are within normal limits. 22:03 ECG was reviewed by the Attending Physician. Vital Signs: 21:27 Pulse 148; Resp 19; Temp 100.9; Pulse Ox 99% on R/A; Weight 81.65 kg; Height 5 ft. 3 kd3 in. (160.02 cm); Pain 5/10; 21:30 BP 109 / 67; as6 22:19 BP 116 / 73; Pulse 147; Resp 18 S; Pulse Ox 100% on R/A; as6 23:02 BP 104 / 71; Pulse 146; Resp 14 S; Temp 100.2(O); Pulse Ox 100% on R/A; as6 02/07 00:12 BP 99 / 69; Pulse 133; Resp 18 S; Pulse Ox 99% on R/A; as6 00:49 BP 96 / 64; Pulse 132; Resp 19 S; Pulse Ox 99% on R/A; as6 01:21 BP 95 / 64; Pulse 127; Resp 19 S; Temp 99.0(O); Pulse Ox 100% on R/A; as6 02:30 BP 100 / 65; Pulse 103; Resp 16; Temp 98.6; Pulse Ox 100% on R/A; Pain 0/10; pf1 03:30 BP 102 / 63; Pulse 105; Resp 20; Pulse Ox 100% on R/A; Pain 0/10; pf1 02 21:27 Body Mass Index 31.89 (81.65 kg, 160.02 cm) kd3 NIH Stroke Scale Scores: 01:30 NIHSS Score: 4 as6 02:00 NIHSS Score: 0 as6 [place] Coma Score: 08/27 22:44 Eye Response: spontaneous(4). Verbal Response: oriented(5). Motor Response: obeys kb commands(6). Total: 15. MDM: 21:19 Patient medically screened. kb 22:44 Differential diagnosis: flu, covid, viral syndrome, uti, uri. Data reviewed: vital kb signs, nurses notes. 08/28 00:36 ED course: Since arrival, symptoms have been progressing. Pt reports chest pain, kb shortness of breath and cough. States the headache, shortness of breath, chest pain and cough and worse in the supine position, better/nearly resolved when sitting upright. Reports weakness to right leg only. Strength 3/5 in right leg, normal strength in other extremities. . 01:46 ED course: Pt now has decreased sensation in left lower extremity and right arm drift. kb Dr Tijerina at bedside for evaluation. . 02:00 Consideration of Admission/Observation Patient was admitted/placed on observation. osna Management of patient was discussed with the following: Hospitalist: Fidencio ORE BRIDGE OPERATOR accepts pt for admission under Dr Linares. Manager Ambulatory: Dr Tijerina discussed case with Dr Villafuerte who will consult on pt. Counseling: I had a detailed discussion with the patient and/or guardian regarding: the historical points, exam findings, and any diagnostic results supporting the discharge/admit diagnosis, lab results, radiology results, the need for further work-up and treatment in the hospital. ED course: Dr Tijerina evaluated pt, appreciates right arm drift and left leg weakness and decreased sensation. Recommended TNK which pt initially agreed to. Pt decided against TNK when nurse took consent to pt. Dr Tijerina spoke with pt again and consulted Dr Villafuerte. Dr Tijerina went back into room after consult and pt's weakness, drift and sensation symptoms have resolved. . 08/27 21:28 Order name: COVID-19/FLU A+B/RSV 08/27 21:28 Order name: CBC with Diff 08/27 21:28 Order name: Basic Metabolic Panel 08/27 21:28 Order name: Smith Screen Profile 08/27 21:31 Order name: Troponin High Sensitivity 08/27 22:00 Order name: Urine --Ancillary (enter results) mw2 08/27 22:02 Order name: Urine Dipstick-Ancillary; Complete Time: 22:02 EDMS 08/27 22:05 Order name: CBC with Automated Diff; Complete Time: 22:07 EDMS 08/27 22:13 Order name: Basic Metabolic Panel; Complete Time: 01:08 EDMS 08/27 22:17 Order name: Smith Screen; Complete Time: 22:17 EDMS 08/27 22:17 Order name: Troponin High Sensitivity; Complete Time: 22:17 EDMS 08/27 22:18 Order name: Urine Microscopic Only 08/27 22:46 Order name: COVID-19/FLU A+B/RSV; Complete Time: 22:47 EDMS 08/27 22:56 Order name: Urine Microscopic Only; Complete Time: 23:00 EDMS 08/27 23:05 Order name: Urine --Ancillary; Complete Time: 23:12 EDMS 08/27 23:12 Order name: CT Head Brain wo Cont kb 08/27 23:39 Order name: Chest Single View XRAY kb 08/28 00:28 Order name: NT PRO-BNP; Complete Time: 01:08 EDMS 08/28 00:28 Order name: Thyroid Stimulating Hormone; Complete Time: 01:08 EDMS 08/28 00:29 Order name: TSH la1 08/28 00:29 Order name: BNP la1 08/28 00:29 Order name: UDS; Complete Time: 01:13 la1 08/28 00:31 Order name: CT Chest For PE Angio bb 08/28 00:31 Order name: Lactate w/ 2H reflex if indic.; Complete Time: 01:46 bb 08/28 00:31 Order name: Blood Culture Adult (2) bb 08/28 00:44 Order name: Procalcitonin; Complete Time: 01:29 la1 08/28 00:53 Order name: Liver (Hepatic) Function; Complete Time: 01:08 EDMS 08/27 21:28 Order name: IV Start; Complete Time: 21:46 kb 08/27 21:28 Order name: Urine Dipstick-Ancillary (obtain specimen); Complete Time: 22:00 kb 08/27 21:28 Order name: Urine Test (obtain specimen); Complete Time: 22:00 kb 08/27 21:31 Order name: EKG; Complete Time: 21:32 kb 08/27 21:31 Order name: EKG - Nurse/Tech; Complete Time: 21:37 kb 08/27 23:00 Order name: Vital Signs; Complete Time: 23:05 kb 08/28 01:43 Order name: CT Neck Angio kb 08/28 01:43 Order name: CT Head Angio kb EC/06 22:03 Rate is 146 beats/min. Rhythm is regular. QRS [place] is Normal. MD interval is normal at kb 120 msec. QRS interval is normal at 70 msec. QT interval is prolonged at 532 msec. Administered Medications: 21:56 Drug: Ibuprofen 800 mg Route: PO; as6 22:50 Follow up: Response: No adverse reaction; Marked relief of symptoms; Pain is decreased pf1 21:56 Drug: NS 0.9% 1000 ml Route: IV; Rate: 1000 ml; Site: right antecubital; as6 23:00 Follow up: IV Status: Completed infusion; IV Intake: 1000ml pf1 08/28 00:15 Drug: NS 0.9% 1000 ml Route: IV; Rate: 1 bolus; Site: right antecubital; as6 01:15 Follow up: Response: No adverse reaction; Marked relief of symptoms; IV Status: pf1 Completed infusion; IV Intake: 1000ml 02:00 Drug: foLIC Acid 1 mg Route: IVPB; Site: right antecubital; as6 03:00 Follow up: Response: No adverse reaction; IV Status: Completed infusion pf1 02:00 Drug: Rocephin (cefTRIAXone) 2 grams Route: IV; Rate: per protocol; Site: right as6 antecubital; 02:05 Follow up: Response: No adverse reaction; IV Status: Completed infusion; IV Intake: 02bybl6 02:00 Drug: vancoMYCIN 1 grams Route: IVPB; Infused Over: 2 hrs; Site: right antecubital; as6 04:00 Follow up: IV Status: Completed infusion; IV Intake: 250ml pf1 02:00 Drug: NS 0.9% 1000 ml Route: IV; Rate: 1 bolus; Site: right antecubital; as6 03:00 Follow up: Response: No adverse reaction; Marked relief of symptoms; IV Status: pf1 Completed infusion; IV Intake: 1000ml 02:05 Drug: Zofran (Ondansetron) 4 mg Route: IVP; Site: right antecubital; pf1 03:00 Follow up: Response: No adverse reaction; Marked relief of symptoms; Nausea is decreasedpf1 02:43 Not Given (Patient Refused): TNK FOR STROKE - Tenecteplase 0.25 mg/kg IV at per as6 protocol once; MAX DOSE 25 mg, IVP over 5 seconds 02:58 Drug: Aspirin Chewable Tablet 81 mg Route: PO; as6 03:50 Follow up: Response: No adverse reaction; Marked relief of symptoms; Pain is decreased; pf1 RASS: Alert and Calm (0) Disposition Summary: 08/28/22 02:05 Hospitalization Ordered Hospitalization Status: Inpatient Admission kb Provider: Renzo Linares Location: Telemetry/MedSurg (Inpatient) kb Condition: Stable kb Problem: new kb Symptoms: are unchanged kb Bed/Room Type: Standard kb Room Assignment: 422(08/28/22 03:30) cg Diagnosis - Fever, unspecified kb - Headache kb - Weakness kb Forms: - Medication Reconciliation Form kb - SBAR form kb NIH Stroke Scale - NIH Stroke Score Date: 08/28/2022 Time: 01:30 Total Score = 4 1a. Level of Consciousness (LOC) - 0(Alert) 1b. Level of Consciousness (LOC) (Month \T\ Age) - 0(Both) 1c. LOC Commands (Open \T\ Closes Eyes/River Crossing Supervisor) - 0(Both) 2. Best Gaze (Lateral Gaze Paresis) - 0(Normal) 3. Visual Field Loss - 0(No visual loss) 4. Facial Palsy - 0(Normal) 5a. Left Arm: Motor (10-second hold) - 0(No drift) 5b. Right Arm: Motor (10-second hold) - 1(Drift) 6a. Left Leg: Motor (5-second hold - always test supine) - 0(No drift) 6b. Right Leg: Motor (5-second hold - always test supine) - 2(Drift, some effort against gravity) 7. Limb Ataxia (finger/nose \T\ heel/rosado - test with eyes open) - 0(Absent) 8. Sensory Loss (pinprick arms/legs/face) - 1(Mild to moderate loss) 9. Best Language: Aphasia (description/naming/reading) - 0(No aphasia) 10. Dysarthria (speech clarity - read or repeat words) - 0(Normal) 11. Extinction and Inattention (visual/tactile/auditory/spatial/personal) - 0(No abnormality) Initials: as6 NIH Stroke Scale - NIH Stroke Score Date: 08/28/2022 Time: 02:00 Total Score = 0 1a. Level of Consciousness (LOC) - 0(Alert) 1b. Level of Consciousness (LOC) (Month \T\ Age) - 0(Both) 1c. LOC Commands (Open \T\ Closes Eyes/River Crossing Supervisor) - 0(Both) 2. Best Gaze (Lateral Gaze Paresis) - 0(Normal) 3. Visual Field Loss - 0(No visual loss) 4. Facial Palsy - 0(Normal) 5a. Left Arm: Motor (10-second hold) - 0(No drift) 5b. Right Arm: Motor (10-second hold) - 0(No drift) 6a. Left Leg: Motor (5-second hold - always test supine) - 0(No drift) 6b. Right Leg: Motor (5-second hold - always test supine) - 0(No drift) 7. Limb Ataxia (finger/nose \T\ heel/rosado - test with eyes open) - 0(Absent) 8. Sensory Loss (pinprick arms/legs/face) - 0(Normal) 9. Best Language: Aphasia (description/naming/reading) - 0(No aphasia) 10. Dysarthria (speech clarity - read or repeat words) - 0(Normal) 11. Extinction and Inattention (visual/tactile/auditory/spatial/personal) - 0(No abnormality) Initials: as6 Signatures: Dispatcher [employer] EDMS Lauren Colon, HAND PICKER-C HAND PICKER-Ckb Robert Tijerina MD MD cha Garcia, Cindy, RN RN cg Moise Cruz RN RN as6 Ellyn Abrams RN RN kd3 Maria R tim, KEISHA RN pf1 Corrections: (The following items were deleted from the chart) 00:26 00:24 THYROID STIMULAT HORMONE+C.LAB.BRZ ordered. EDMS EDMS 00:26 00:24 PROBNP+C.LAB.BRZ ordered. EDMS EDMS 00:50 00:48 HEPATIC FUNCTION+C.LAB.BRZ ordered. EDMS EDMS 03:30 02:05 kb cg
--- NOTE | 2022-08-28 02:05 | ER ---
Nurse's Notes [facility] Name: Melony Borjas Age: 32 yrs Sex: Female : 1990 Arrival Date: 08/27/2022 Time: 21:18 Bed 13 Private MD: Diagnosis: Fever, unspecified;Headache;Weakness Presentation: 08/27 21:27 Chief complaint: Patient states: I started having a headache around 5:30 this afternoon kd3 and now i just have the chills. I am freezing. I don't know if i have been around anyone sick but i do work 3 jobs so who knows. Coronavirus screen: Vaccine status: Patient reports being unvaccinated. Ebola Screen: No symptoms or risks identified at this time. Initial Sepsis Screen: Does the patient meet any 2 criteria? No. Patient's initial sepsis screen is negative. Does the patient have a suspected source of infection? No. Patient's initial sepsis screen is negative. Risk Assessment: Do you want to hurt yourself or someone else? Patient reports no desire to harm self or others. Onset of symptoms was August 27, 2022. 21:27 Method Of Arrival: Ambulatory kd3 21:27 Acuity: RUSTY 3 kd3 Triage Assessment: 21:29 Headache History: Denies prior headaches. Headache History: Denies prior headaches. kd3 General: Appears uncomfortable, Behavior is calm, cooperative. Pain: Pain currently is 7 out of 10 on a pain scale. Pain began gradually, Also complains of no other associated symptoms. Neuro: Level of Consciousness is awake, alert, obeys commands, Oriented to person, place, time, situation. 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 - Social history:: Smoking status: unknown. Screenin:18 [facility] ED Fall Risk Assessment (Adult) Score/Fall Risk Level 0 - 2 = Low Risk. Abuse as6 screen: Denies threats or abuse. Denies injuries from another. Nutritional screening: No deficits noted. Tuberculosis screening: No symptoms or risk factors identified. Assessment: 21:50 General: Appears in no apparent distress. Behavior is calm, cooperative, Reports chills as6 for 0-12 hours, fever for 0-12 hours, feeling ill for 0-12 hours, fatigue for 0-12 hours. Pain: Complains of pain in head. Neuro: Level of Consciousness is awake, alert, obeys commands, Oriented to person, place, time, situation, Reports headache. Cardiovascular: Capillary refill < 3 seconds Patient's skin is warm and dry. Respiratory: Respiratory effort is even, unlabored, Respiratory pattern is regular, symmetrical. Derm: Skin is intact, is healthy with good turgor. 22:20 Reassessment: Patient appears in no apparent distress at this time. as6 23:02 General: pt ambulated to bathroom with assistance from visitor that was with pt. pt as6 needed assistance ambulating back from bathroom. pt had trouble getting back in bed and c/o right leg weakness "I am just so weak and I can hardly move my leg". 08/28 01:30 General: pt reporting right leg weakness and decreased sensation. providers notified. as6 Dr. Tijerina at bedside assessing pt. Pt refusing TNK. . 02:00 General: symptoms resolved of right sided leg weakness and decreased sensation . as6 02:40 General: pt refusing LP . as6 03:30 Reassessment: Patient appears in no apparent distress at this time. Patient and/or pf1 family updated on plan of care and expected duration. Pain level reassessed. Patient states feeling better. Patient states symptoms have improved. Vital Signs: 08/27 21:27 Pulse 148; Resp 19; Temp 100.9; Pulse Ox 99% on R/A; Weight 81.65 kg; Height 5 ft. 3 kd3 in. (160.02 cm); Pain 5/10; 21:30 BP 109 / 67; as6 22:19 BP 116 / 73; Pulse 147; Resp 18 S; Pulse Ox 100% on R/A; as6 23:02 BP 104 / 71; Pulse 146; Resp 14 S; Temp 100.2(O); Pulse Ox 100% on R/A; as6 0207 00:12 BP 99 / 69; Pulse 133; Resp 18 S; Pulse Ox 99% on R/A; as6 00:49 BP 96 / 64; Pulse 132; Resp 19 S; Pulse Ox 99% on R/A; as6 01:21 BP 95 / 64; Pulse 127; Resp 19 S; Temp 99.0(O); Pulse Ox 100% on R/A; as6 02:30 BP 100 / 65; Pulse 103; Resp 16; Temp 98.6; Pulse Ox 100% on R/A; Pain 0/10; pf1 03:30 BP 102 / 63; Pulse 105; Resp 20; Pulse Ox 100% on R/A; Pain 0/10; pf1 02/06 21:27 Body Mass Index 31.89 (81.65 kg, 160.02 cm) kd3 [place] Coma Score: 08/27 22:44 Eye Response: spontaneous(4). Verbal Response: oriented(5). Motor Response: obeys kb commands(6). Total: 15. NIH Stroke Scale Scores: 08/28 01:30 NIHSS Score: 4 as6 02:00 NIHSS Score: 0 as6 ED Course: 08/27 21:18 Patient arrived in ED. ja2 21:19 Moise Cruz, KEISHA is Primary Nurse. as6 21:19 Lauren Colon FNP-C is PHCP. kb 21:19 Robert Tijerina MD is Attending Physician. kb 21:29 Triage completed. kd3 21:29 Arm band placed on left wrist. kd3 21:40 Inserted saline lock: 20 gauge in right antecubital area, using aseptic technique. pf1 Blood collected. 21:46 Troponin High Sensitivity Sent. pf1 21:46 [place] Screen Profile Sent. pf1 21:46 CBC with Diff Sent. pf1 21:46 Basic Metabolic Panel Sent. pf1 21:46 COVID-19/FLU A+B/RSV Sent. pf1 22:18 Bed in low position. Call light in reach. Side rails up X 1. Adult w/ patient. Client as6 placed on continuous cardiac and pulse oximetry monitoring. NIBP monitoring applied. Warm blanket given. 23:50 CT Head Brain wo Cont In Process Unspecified. EDMS 23:57 Chest Single View XRAY In Process Unspecified. EDMS 0207 00:32 BNP Sent. pf1 00:32 TSH Sent. pf1 01:08 CT Chest For PE Angio In Process Unspecified. EDMS 02:04 Renzo Linares MD is Hospitalizing Provider. kb 02:31 CT Neck Angio In Process Unspecified. EDMS 02:31 CT Head Angio In Process Unspecified. EDMS 03:11 No provider procedures requiring assistance completed. Patient admitted, IV remains in as6 place. Administered Medications: 08/27 21:56 Drug: Ibuprofen 800 mg Route: PO; as6 22:50 Follow up: Response: No adverse reaction; Marked relief of symptoms; Pain is decreased pf1 21:56 Drug: NS 0.9% 1000 ml Route: IV; Rate: 1000 ml; Site: right antecubital; as6 23:00 Follow up: IV Status: Completed infusion; IV Intake: 1000ml pf1 08/28 00:15 Drug: NS 0.9% 1000 ml Route: IV; Rate: 1 bolus; Site: right antecubital; as6 01:15 Follow up: Response: No adverse reaction; Marked relief of symptoms; IV Status: pf1 Completed infusion; IV Intake: 1000ml 02:00 Drug: foLIC Acid 1 mg Route: IVPB; Site: right antecubital; as6 03:00 Follow up: Response: No adverse reaction; IV Status: Completed infusion pf1 02:00 Drug: Rocephin (cefTRIAXone) 2 grams Route: IV; Rate: per protocol; Site: right as6 antecubital; 02:05 Follow up: Response: No adverse reaction; IV Status: Completed infusion; IV Intake: [id number] 02:00 Drug: vancoMYCIN 1 grams Route: IVPB; Infused Over: 2 hrs; Site: right antecubital; as6 04:00 Follow up: IV Status: Completed infusion; IV Intake: 250ml pf1 02:00 Drug: NS 0.9% 1000 ml Route: IV; Rate: 1 bolus; Site: right antecubital; as6 03:00 Follow up: Response: No adverse reaction; Marked relief of symptoms; IV Status: pf1 Completed infusion; IV Intake: 1000ml 02:05 Drug: Zofran (Ondansetron) 4 mg Route: IVP; Site: right antecubital; pf1 03:00 Follow up: Response: No adverse reaction; Marked relief of symptoms; Nausea is decreasedpf1 02:43 Not Given (Patient Refused): TNK FOR STROKE - Tenecteplase 0.25 mg/kg IV at per as6 protocol once; MAX DOSE 25 mg, IVP over 5 seconds 02:58 Drug: Aspirin Chewable Tablet 81 mg Route: PO; as6 03:50 Follow up: Response: No adverse reaction; Marked relief of symptoms; Pain is decreased; pf1 RASS: Alert and Calm (0) Medication: 08/27 22:18 VIS not applicable for this client. as6 Intake: 23:00 IV: 1000ml; Total: 1000ml. pf1 08/28 01:15 IV: 1000ml; Total: 2000ml. pf1 02:05 IV: 10ml; Total: 2010ml. pf1 03:00 IV: 1000ml; Total: 3010ml. pf1 04:00 IV: 250ml; Total: 3260ml. pf1 Outcome: 02:05 Decision to Hospitalize by Provider. kb 03:11 [facility] as6 03:11 Condition: stable 03:11 Instructed on the need for admit. 04:25 Admitted to Tele accompanied by spencer, via wheelchair, room 422, with chart, Report pf1 called to report given by KEISHA Phipps to receiving nurse 04:25 Condition: stable 04:25 Instructed on the need for admit, Demonstrated understanding of instructions. 04:26 Patient left the ED. pf1 NIH Stroke Scale - NIH Stroke Score Date: 08/28/2022 Time: 01:30 Total Score = 4 1a. Level of Consciousness (LOC) - 0(Alert) 1b. Level of Consciousness (LOC) (Month \\T\\ Age) - 0(Both) 1c. LOC Commands (Open \\T\\ Closes Eyes/Pipe Racker) - 0(Both) 2. Best Gaze (Lateral Gaze Paresis) - 0(Normal) 3. Visual Field Loss - 0(No visual loss) 4. Facial Palsy - 0(Normal) 5a. Left Arm: Motor (10-second hold) - 0(No drift) 5b. Right Arm: Motor (10-second hold) - 1(Drift) 6a. Left Leg: Motor (5-second hold - always test supine) - 0(No drift) 6b. Right Leg: Motor (5-second hold - always test supine) - 2(Drift, some effort against gravity) 7. Limb Ataxia (finger/nose \\T\\ heel/rosado - test with eyes open) - 0(Absent) 8. Sensory Loss (pinprick arms/legs/face) - 1(Mild to moderate loss) 9. Best Language: Aphasia (description/naming/reading) - 0(No aphasia) 10. Dysarthria (speech clarity - read or repeat words) - 0(Normal) 11. Extinction and Inattention (visual/tactile/auditory/spatial/personal) - 0(No abnormality) Initials: as6 NIH Stroke Scale - NIH Stroke Score Date: 08/28/2022 Time: 02:00 Total Score = 0 1a. Level of Consciousness (LOC) - 0(Alert) 1b. Level of Consciousness (LOC) (Month \\T\\ Age) - 0(Both) 1c. LOC Commands (Open \\T\\ Closes Eyes/Pipe Racker) - 0(Both) 2. Best Gaze (Lateral Gaze Paresis) - 0(Normal) 3. Visual Field Loss - 0(No visual loss) 4. Facial Palsy - 0(Normal) 5a. Left Arm: Motor (10-second hold) - 0(No drift) 5b. Right Arm: Motor (10-second hold) - 0(No drift) 6a. Left Leg: Motor (5-second hold - always test supine) - 0(No drift) 6b. Right Leg: Motor (5-second hold - always test supine) - 0(No drift) 7. Limb Ataxia (finger/nose \\T\\ heel/rosado - test with eyes open) - 0(Absent) 8. Sensory Loss (pinprick arms/legs/face) - 0(Normal) 9. Best Language: Aphasia (description/naming/reading) - 0(No aphasia) 10. Dysarthria (speech clarity - read or repeat words) - 0(Normal) 11. Extinction and Inattention (visual/tactile/auditory/spatial/personal) - 0(No abnormality) Initials: as6 Signatures: Dispatcher [employer] EDLauren Garcia, NURSE ESTHETICIAN-C NURSE ESTHETICIAN-Graciela Wilson Ashby, KEISHA RN as6 Ellyn Abrams RN RN kd3 Maria R tim RN RN pf1
[2022-08-28] MEDS ORDERED: ONDANSETRON 4 MG/2 ML VIAL ONE (02:10)
[2022-08-28] MEDS ORDERED: ASPIRIN 81 MG CHEWABLE TABLET ONE (02:51)
--- NOTE | 2022-08-28 03:29 | P.HP ---
Certification for Inpatient Patient admitted to: Inpatient With expected LOS: >2 Midnights Patient will require the following post-hospital care: None Practitioner: I am a practitioner with admitting privileges, knowledge of patient current condition, hospital course, and medical plan of care. Services: Services provided to patient in accordance with Admission requirements found in Title 42 Section 412.3 of the Code of Federal Regulations Patient History Date of Service: 08/28/22 Reason for admission: Right-sided weakness, headache, fever History of Present Illness: 32-year-old otherwise healthy female presented to the emergency department with chief complaint of headache. Upon arrival to the emergency department patient was noted to be tachycardic, febrile with Tmax of 100.9. She was evaluated in the emergency department her labs were completely unremarkable although she remained tachycardic with borderline low blood pressures. CTA chest was performed which was negative for pulmonary embolism or respiratory infection, she was negative for strep, flu, COVID, mono. During her stay in the emergency department she developed right lower extremity paresthesias, weakness, right upper extremity weakness. Her NIH is 3. CT head without contrast was negative, ED discussed case with neurology who recommended TNK be given. Patient refused TNK after prolonged discussion with multiple providers including myself was explained the risk of not receiving TNK including permanent deficit/worsening of deficit. Patient verbalized understanding states she is "not sure what will happen", upon reassessment patient's neurological symptoms have significantly improved at this time although she is still complaining of headache and tachycardic with rate of 110. She was given Rocephin/vancomycin in the emergency department there was some concern as we have not confirmed source of infection and she was febrile with a headache that she may have meningitis, plan was to obtain LP to rule this out although patient also refused this. She was given antibiotics in the ED, ED provider wishes to admit for further evaluation and management. Allergies No Known Allergies Allergy (Unverified 08/13/14 21:58) - Past Medical/Surgical History -: None -: x3 -: Appendectomy Psychosocial/ Personal History: Patient lives at home with family - Family History Family History: Reviewed- Non-Contributory - Social History Smoking Status: Never smoker Alcohol use: No CD- Drugs: No Caffeine use: Yes Place of Residence: Home Review of Systems General: Fever, Chills Neurological: Weakness, Numbness, Other (Headache) Physical Examination - Physical Exam General: Alert, In no apparent distress, Oriented x3 HEENT: Atraumatic, PERRLA, Mucous membr. moist/pink, EOMI, Sclerae nonicteric Neck: Supple, 2+ carotid pulse no bruit, No LAD, Without JVD or thyroid abnormality Respiratory: Clear to auscultation bilaterally, Normal air movement Cardiovascular: Regular rate/rhythm, Normal S1 S2 Capillary refill: <2 Seconds Gastrointestinal: Normal bowel sounds, No tenderness Musculoskeletal: No tenderness Integumentary: No rashes Neurological: Normal speech, Normal tone, Normal affect, Other (Positive for right arm drift, right leg paresthesia, weakness) - Studies Laboratory Data (last 24 hrs) 08/28/22 00:47: Total Bilirubin Cancelled, AST Cancelled, ALT Cancelled, Alkaline Phosphatase Cancelled 08/27/22 21:40: Sodium 137, Potassium 3.8, BUN 15, Creatinine 0.83, Glucose 110 H, Total Bilirubin 0.4, AST 18, ALT 26, Alkaline Phosphatase 76 08/27/22 21:40: WBC 10.90, Hgb 13.0, Hct 38.5, Plt Count 263 Assessment and Plan - Plan Assessment: Fever, headache Right-sided weakness/paresthesias Plan: Fever, headache: Labs completely unremarkable, procalcitonin negative, negative for strep, flu, influenza, mono. Neck is supple no photophobia. Patient refused LP in ED. Blood cultures obtained, continue Rocephin, vancomycin. ID consulted. Echocardiogram ordered as well with consideration of endocarditis. Right-sided weakness/paresthesias Developed deficits while in the emergency department including right lower extremity weakness, numbness, right arm drift. NIH was 2-3 at that time. Case was discussed with neurology who recommended TNK. Patient refused after extensive discussion with multiple providers regarding risks/benefits. CT head without contrast was negative, will continue stroke work-up, MRI, echo. DVT PPX: Lovenox Code status: Full Discharge Plan: Home Plan to discharge in: 48 Hours - Advance Directives Does patient have a Living Will: No Does patient have a Durable POA for Healthcare: No - Code Status/Comfort Care Code Status Assessed: Yes (Full code) Critical Care: No Time Spent Managing Pts Care (In Minutes): 70
[2022-08-28] MEDS ORDERED: ACETAMINOPHEN 500 MG TAB PO PRN (03:31)
[2022-08-28] MEDS ORDERED: VANCOMYCIN 1 GM in NA CHLORIDE 0.9% 250 ML IVPB SCH (03:31)
[2022-08-28] MEDS ORDERED: ONDANSETRON 4 MG/2 ML VIAL IV PRN (03:31)
[2022-08-28 03:35] VITALS: BMI 31.8
[2022-08-28] MEDS ORDERED: VANCOMYCIN 1 GM in NA CHLORIDE 0.9% 250 ML IVPB ONE (04:00)
[2022-08-28 04:40] VITALS: O2SAT 100
[2022-08-28 07:50] LABS: Absolute Lymphocytes (CBC) 0.7 K/uL (0.7-4.9); Hematocrit 34.9 % (36.0-45.0); Lymphocytes % 8.9 % (15.3-44.8); MPV 8.8 fL (7.6-11.3); RBC Red Blood Cell Count 4.31 M/uL (3.86-4.86)
[2022-08-28] MEDS: ENOXAPARIN 40 MG/0.4 ML SQ SCH ×2 (07:56→07:59)
[2022-08-28] MEDS: ASPIRIN EC 81 MG TAB PO SCH ×2 (07:57→07:59)
[2022-08-28 08:11] LABS: Potassium 3.6 mmol/L (3.5-5.1)
--- NOTE | 2022-08-28 08:16 | P.CNS ---
Date of Consult: 08/28/22 Chief Complaint: Right-sided weakness, headache, fever History of Present Illness: 32-year-old otherwise healthy female presented to the emergency department with chief complaint of headache. Upon arrival to the emergency department patient was noted to be tachycardic, febrile with Tmax of 100.9. She was evaluated in the emergency department her labs were completely unremarkable although she remained tachycardic with borderline low blood pressures. CTA chest was performed which was negative for pulmonary embolism or respiratory infection, she was negative for strep, flu, COVID, mono. During her stay in the emergency department she developed right lower extremity paresthesias, weakness, right upper extremity weakness. Her NIH is 3. CT head without contrast was negative, ED discussed case with neurology who recommended TNK be given. Patient refused TNK after prolonged discussion with multiple providers including myself was explained the risk of not receiving TNK including permanent deficit/worsening of deficit. Patient verbalized understanding states she is "not sure what will happen", upon reassessment patient's neurological symptoms have significantly improved at this time although she is still complaining of headache and tachycardic with rate of 110. She was given Rocephin/vancomycin in the emergency department there was some concern as we have not confirmed source of infection and she was febrile with a headache that she may have meningitis, plan was to obtain LP to rule this out although patient also refused this. She was given antibiotics in the ED, ED provider wishes to admit for further evaluation and management. ID has been consulted for unknown source of fever Allergies No Known Allergies Allergy (Unverified 08/13/14 21:58) - Past Medical/Surgical History -: None -: x3 -: Appendectomy Psychosocial/ Personal History: Patient lives at home with family - Social History Smoking Status: Unknown if ever smoked Alcohol use: No CD- Drugs: No Caffeine use: Yes Place of Residence: Home Review of Systems 10-point ROS is otherwise unremarkable General: Fever Cardiovascular: Other (fast heart beats) Neurological: Weakness (right side with paresthesias), Other (headache) Physical Examination Temp Pulse Resp BP Pulse Ox 97.4 F 111 H 16 111/70 99 08/28/22 04:00 08/28/22 04:00 08/28/22 04:00 08/28/22 04:00 08/28/22 04:00 General: Alert, In no apparent distress, Oriented x3 Neck: Supple Respiratory: Clear to auscultation bilaterally Cardiovascular: No edema, Normal S1 S2 Gastrointestinal: Normal bowel sounds Musculoskeletal: No swelling, No tenderness Integumentary: No rashes, No breakdown Neurological: Normal speech, Normal tone, Sensation intact, Normal affect Laboratory Data (last 24 hrs) 08/28/22 00:47: Total Bilirubin Cancelled, AST Cancelled, ALT Cancelled, Alkaline Phosphatase Cancelled 08/27/22 21:40: Sodium 137, Potassium 3.8, BUN 15, Creatinine 0.83, Glucose 110 H, Total Bilirubin 0.4, AST 18, ALT 26, Alkaline Phosphatase 76 08/27/22 21:40: WBC 10.90, Hgb 13.0, Hct 38.5, Plt Count 263 Acetaminophen (Acetaminophen 500 Mg Tab) 500 mg PO Q4HP PRN PRN Reason: Pain scale 2-4 (Mild) Aspirin (Aspirin Ec 81 Mg Tab) 81 mg PO DAILY [facility] Last Admin: 08/28/22 07:59 Dose: 81 mg Atorvastatin Calcium (Atorvastatin 40 Mg Tab) 40 mg PO BEDTIME [facility] Enoxaparin Sodium (Enoxaparin 40 Mg/0.4 Ml) 40 mg SQ DAILY [facility] Last Admin: 08/28/22 07:59 Dose: Not Given Folic Acid (Folic Acid 1 Mg Tablet) 1 mg PO DAILY [facility] Last Admin: 08/28/22 07:56 Dose: 1 mg Ceftriaxone Sodium 2,000 mg/ (Sodium Chloride) 100 mls @ 200 mls/hr IV DAILY [facility]; Protocol Last Admin: 08/28/22 07:57 Dose: 100 mls Vancomycin HCl 1.5 gm/ Sodium (Chloride) 500 mls @ 250 mls/hr IVPB Q12H [facility] Ondansetron HCl (Ondansetron 4 Mg/2 Ml Vial) 4 mg IV Q6HP PRN PRN Reason: NAUSEA / VOMITING Sodium Chloride (Flush Normal Saline 10 Ml) 10 ml IV BID [facility] Last Admin: 08/28/22 07:57 Dose: 10 ml Microbiology 08/28/22 01:33 Blood - Blood Anaerobic Blood Culture - Final Imagings Data: MRI - MRA Neck W/Wo Cont - 08/28/2022 FINDINGS: Aortic arch is 3 vessel configuration with no origins stenosis. Codominant vertebral arteries also without origins stenoses. The bilateral common carotid and internal carotid arteries show no vasculitis, stenosis or dissection change. No suspicious vertebral artery finding. Distal vertebral arteries and basilar artery are separately detailed in MRI MRA imaging of the head. IMPRESSION: Unremarkable MR angio neck examination MRI - MRA Head Wo Cont - 08/28/2022 FINDINGS: Distal vertebral artery is very small in size as a normal variant. There is tortuosity of the basilar artery but no suspicious vertebrobasilar finding. Left posterior communicating artery is present. Patient has a large right posterior communicating artery with absent or 8 atretic right TOWN MA[employer]GER P1 segment. This is normal anatomic variation. Distal internal carotid arteries show no suspicious findings. The anterior, middle and posterior cerebral artery distribution show no significant atherosclerotic change. No named branch occlusion or vasculitis. No aneurysm or vascular malformation. IMPRESSION: Unremarkable MR angio head examination. Normal anatomic variants are detailed in the body of the report MRI - Brain W/Wo Cont - 08/28/2022 FINDINGS: No intracranial hemorrhage, mass or acute infarction. There is no edema or shift of midline structures. No extra-axial fluid collections. Valerio-matter/white matter junction is preserved. Signal voids are seen as a normal finding in the major intracranial vessels. Post-contrast images show normal enhancement. No dural thickening. Mastoid air cells and paranasal sinuses are clear. IMPRESSION: Negative contrast enhanced MRI of the Brain. Pending results for CT-Head, Xray Chest, CTA Chest, and CTA neck/head - Problems (1) unknown source of fever Current Visit: Yes Status: Acute Plan: Cultures: 08/28 BCx2: Pending 08/28 Group A Strept: Negative Antibiotics: On IV Ceftriaxone and Vancomycin (from 08/28) Recommendations: Continue IV Ceftriaxone and Vancomycin ID will recommend antibiotics drug of choice with cultures are available Conclusions/Impression: - Fever, headache - Right-sided weakness/paresthesias - Appendectomy ID will monitor the patient closely for signs of infection with fever and WBC trends Case has been discussed with Dr. Connors N Thank you Dr. Linares for consultation
[2022-08-28] MEDS ORDERED: CEFTRIAXONE 2,000 MG in NA CHLORIDE 0.9% 100 ML IV SCH (09:00)
[2022-08-28] MEDS ORDERED: FOLIC ACID 1 MG TABLET PO SCH (09:00)
[2022-08-28] MEDS ORDERED: INFLUENZA VACCINE (for 6+ mo) 0.5 ML DOSE IMVAC ONE (09:00)
--- NOTE | 2022-08-28 11:16 | RAD REPORT ---
EXAM DESCRIPTION: MRI - MRA Neck W/Wo Cont - 08/28/2022 10:28 am CLINICAL HISTORY: Stroke protocol study, headaches, hypertension, left-sided weakness COMPARISON: CT angio neck 08/28/2022 TECHNIQUE: MR angiography of the cervical vasculature performed. Coronal imaging plane acquisition u tilized. A 18 MultiHance contrast volume was utilized. Coronal reformatted images were generated and reviewed. Vertical axis 3D rotational projections obtained using maximum intensity projection protoco l. FINDINGS: Aortic arch is 3 vessel configuration with no origins stenosis. Codominant vertebral arter ies also without origins stenoses. The bilateral common carotid and internal carotid arteries show no vasculitis, stenosis or dissection change. No suspicious vertebral artery finding. Distal vertebral arteries and basilar artery are separately detailed in MRI MRA imaging of the head. IMPRESSION: Unremarkable MR angio neck examination.
--- NOTE | 2022-08-28 11:19 | RAD REPORT ---
EXAM DESCRIPTION: MRI - MRA Head Wo Cont - 08/28/2022 10:28 am CLINICAL HISTORY: CVA, headache, left-sided weakness COMPARISON: CT head same date TECHNIQUE: Axial and coronal 3D [id number] image acquisition was performed. 3D rotational images were generated with source and reconstruction images reviewed. Horizontal and vertical axis rotation al views generated using MIP protocol. FINDINGS: Distal vertebral artery is very small in size as a normal variant. There is tortuosity of the basilar artery but no suspicious vertebrobasilar finding. Left posterior communicating artery is present. Patient has a large right posterior communicating artery with absent or 8 atretic right [employer]IST P1 segment. This is normal anatomic variation. Distal internal carotid arteries show no suspicious findings. The anterior, middle and posterior cere bral artery distribution show no significant atherosclerotic change. No named branch occlusion or vas culitis. No aneurysm or vascular malformation. IMPRESSION: Unremarkable MR angio head examination. Normal anatomic variants are detailed in the bod y of the report.
--- NOTE | 2022-08-28 11:21 | RAD REPORT ---
EXAM DESCRIPTION: MRI - Brain W/Wo Cont - 08/28/2022 10:28 am CLINICAL HISTORY: RIGHT SIDED WEAKNESS COMPARISON: MRA Head Wo Cont dated 08/28/2022 TECHNIQUE: Sagittal and axial T1-weighted images were obtained. Axial PD/heavily T2-weighted and T2- FLAIR images were obtained along with axial DWI/ADC mapping sequences. Coronal heavily T2 weighted s equence obtained. Axial and coronal post-contrast T1-weighted images were also obtained. A 18 ml Mul tihance contrast following utilized. FINDINGS: No intracranial hemorrhage, mass or acute infarction. There is no edema or shift of midli ne structures. No extra-axial fluid collections. Valerio-matter/white matter junction is preserved. Sig nal voids are seen as a normal finding in the major intracranial vessels. Post-contrast images show normal enhancement. No dural thickening. Mastoid air cells and paranasal sinuses are clear. IMPRESSION: Negative contrast enhanced MRI of the Brain.
--- NOTE | 2022-08-28 13:35 | RAD REPORT ---
EXAM DESCRIPTION: CT - Head Brain Wo Cont - 08/28/2022 6:52 am CLINICAL HISTORY: The patient is 32 years old and is Female; HEADACHE TECHNIQUE: Axial computed tomography images of the head/brain without intravenous contrast. Sagitt al and coronal reformatted images were created and reviewed. This CT exam was performed using one o r more of the following dose reduction techniques: automated exposure control, adjustment of the mA and/or kV according to patient size, and/or use of iterative reconstruction technique. COMPARISON: No relevant prior studies available. FINDINGS: Brain: Unremarkable. No hemorrhage. No significant white matter disease. No edema. Ventricles: Unremarkable. No ventriculomegaly. Bones/joints: Unremarkable. No acute fracture. Soft tissues: Unremarkable. Sinuses: Unremarkable as visualized. Mastoid air cells: Unremarkable as visualized. No mastoid effusion. IMPRESSION: No acute intracranial abnormality. Electronically signed by: Angel Velasquez MD 08/27/2022 11:55 PM CERTIFIED TRAVEL COUNSELOR Due to temporary technical issues with the PACS/Fluency reporting system, reports are being signed by the in house radiologists without review as a courtesy to insure prompt reporting. The interpreting radiologist is fully responsible for the content of the report.
--- NOTE | 2022-08-28 13:37 | RAD REPORT ---
EXAM DESCRIPTION: RAD - Chest Single View - 08/27/2022 11:55 pm CLINICAL HISTORY: Chest Pain COMPARISON: None. TECHNIQUE: Chest 1 View AP FINDINGS: Trachea midline. Heart size and pulmonary vessels within normal limits. Lungs clear without evidence of consolidation, mass, or significant pulmonary edema. No significant pleural effusion or pneumothorax. Bones unremarkable. IMPRESSION: Normal chest radiograph. Electronically signed by: Wily Novoa MD 08/28/2022 12:24 AM BUSINESS AREA MANAGER Due to temporary technical issues with the PACS/Fluency reporting system, reports are being signed by the in house radiologists without review as a courtesy to insure prompt reporting. The interpreting radiologist is fully responsible for the content of the report.
--- NOTE | 2022-08-28 13:48 | RAD REPORT ---
EXAM DESCRIPTION: CT - Chest For Pe Angio - 08/28/2022 6:51 am CLINICAL HISTORY: Chest pain TECHNIQUE: Axial computed tomographic angiography images of the chest with intravenous contrast. S agittal and coronal reformatted images were created and reviewed. This CT exam was performed using one or more of the following dose reduction techniques: automated exposure control, adjustment of t he mA and/or kV according to patient size, and/or use of iterative reconstruction technique. MIP reconstructed images were created and reviewed. COMPARISON: No relevant prior studies available. FINDINGS: Pulmonary arteries: Unremarkable. No pulmonary arterial filling defects. Aorta: No acute findings. No thoracic aortic aneurysm. Lungs: Unremarkable. No mass. No consolidation. Pleural space: Unremarkable. No significant effusion. No pneumothorax. Heart: Unremarkable. No cardiomegaly. No significant pericardial effusion. No evidence of RV dysfunction. Mediastinum: Soft tissue density in the anterior mediastinum thought to represent residual thymic t issue. Bones/joints: No acute fracture. No dislocation. Soft tissues: Unremarkable. Lymph nodes: Unremarkable. No enlarged lymph nodes. IMPRESSION: No pulmonary embolic disease. Electronically signed by: Ave Montes MD 08/28/2022 1:52 AM [facility] Due to temporary technical issues with the PACS/Fluency reporting system, reports are being signed by the in house radiologists without review as a courtesy to insure prompt reporting. The interpreting radiologist is fully responsible for the content of the report.
--- NOTE | 2022-08-28 14:28 | RAD REPORT ---
EXAM DESCRIPTION: CT - Neck Angio - 08/28/2022 6:51 am CLINICAL HISTORY: Numbness COMPARISON: None. TECHNIQUE: Neck CTA axial images acquired with IV contrast. Coronal and sagittal CTA MIPs and MPRs c reated. Exam performed according to departmental dose-optimization program which includes automated e xposure control, adjustment of mA and/or kV according to patient size, and/or use of iterative recons truction technique. FINDINGS: Aortic arch not imaged. Both vertebral arteries unremarkable. Both carotid arteries unremarkable. No significant carotid artery stenosis (by NASCET criteria). IMPRESSION: Unremarkable CTA Neck. Electronically signed by: Wily Novoa MD 08/28/2022 3:46 AM COORDINATOR OF PLACEMENT Due to temporary technical issues with the PACS/Fluency reporting system, reports are being signed by the in house radiologists without review as a courtesy to insure prompt reporting. The interpreting radiologist is fully responsible for the content of the report.
--- NOTE | 2022-08-28 14:40 | RAD REPORT ---
EXAM DESCRIPTION: CT - Head angio - 08/28/2022 6:51 am CLINICAL HISTORY: Weakness COMPARISON: CT Head/Brain Without Contrast 08/27/2022 at 11:33 PM TECHNIQUE: Head and neck CTA axial images acquired with IV contrast. Coronal and sagittal CTA MIPs a nd MPRs created. Exam performed according to departmental dose-optimization program which includes au tomated exposure control, adjustment of mA and/or kV according to patient size, and/or use of iterati ve reconstruction technique. FINDINGS: Both intracranial vertebral, basilar, and both posterior cerebral arteries unremarkable. Both intracranial internal carotid, both middle cerebral, anterior communicating, and both anterior c erebral arteries unremarkable. No evidence of large intracranial arterial occlusion, aneurysm, or AVM. IMPRESSION: Unremarkable CTA Head. Electronically signed by: Wily Novoa MD 08/28/2022 3:41 AM STAFF COMMAND AND CONTROL OFFICER Due to temporary technical issues with the PACS/Fluency reporting system, reports are being signed by the in house radiologists without review as a courtesy to insure prompt reporting. The interpreting radiologist is fully responsible for the content of the report.
[2022-08-28] MEDS ORDERED: KETOROLAC 30 MG/ML INJ IV ONE ×2 (16:16→17:00)
[2022-08-28] MEDS ORDERED: PROPRANOLOL HCL 10 MG TAB PO ONE (16:16)
[2022-08-28 16:25] VITALS: BP 123/73
[2022-08-28 16:30] VITALS: TEMP 99
[2022-08-28] MEDS ORDERED: VANCOMYCIN 1.5 GM in NA CHLORIDE 0.9% 500 ML IVPB SCH (17:00)
[2022-08-28 17:12] LABS: Thyroid Stimulating Hormone 2.38 uIU/mL (0.358-3.740)
[2022-08-28] MEDS ORDERED: ATORVASTATIN 40 MG TAB PO SCH (21:00)
--- NOTE | 2022-08-28 21:29 | CON ---
Reason For Consultation: Consultation called because of possible stroke. History Of Present Illness: Ms. Borjas is a 32-year-old right-handed patient who comes to [facility] with headache, fever, tachycardia, and right-sided weakness. She does have a his tory of headaches. She was tachycardic and was evaluated for possible pulmonary embolus and that mikey dy was negative including the chest evaluation. She had a negative strep, COVID, and mono test serie s done. Her NIH stroke scale was 3 at the time because of the right-sided weakness. She was felt to be within the window for tissue plasminogen activator, but the patient refused TNKs, although that w as recommended. She did receive hydration and was admitted for further workup. Her symptoms actuall y resolved within a day. She had received actually Rocephin and vancomycin for the possibility of a central nervous system infection. Again, the patient did refuse a lumbar puncture. After admission, her symptoms did return to normal. Her strength came all the way back and she reports the fever res olved and her headache improved. A brain MRI was done. The study showed no acute ischemic or hemorr hagic changes and MRA of her head and neck showed no significant abnormalities. CT angiogram also of her head and neck showed no significant abnormalities. Blood work showed essentially unremarkable c omplete blood count with differential. Basic metabolic panel did show calcium was slightly low at 7. 5 and glucose 126. Her HDL cholesterol was 38, LDL 88. TSH 2.38. She did have a negative procalcit onin of 0.05. Liver function studies were unremarkable. Urine drug screen negative. Urinalysis unr emarkable. Her influenza mono screen negative. COVID testing negative. Past Medical History: As noted. Allergies: NO KNOWN DRUG ALLERGIES. Past Surgical History: 3 C-sections and appendectomy. Family History: Noncontributory. Social History: No alcohol, tobacco, or IV drug use. She does drink caffeinated beverages. Review of Systems: She reports fevers, chills, right-sided weakness, numbness, headache, and nausea and those symptoms h ave now resolved. Physical Examination: Vital Signs: Blood pressure 123/73, pulse of 106, temperature 99, respiratory rate 16, and oxygen sa turation 98%. Weight 180 pounds, 5 feet 3 inches, BMI 31. General: Ms. Borjas is lying in bed with family at bedside. HEENT: She is normocephalic, atraumatic. Sclerae anicteric. Oropharynx is pink and moist. Neck: Supple. Chest: Clear. Heart: Regular. Extremities: No clubbing, cyanosis, or edema. Neurologic: She is alert and oriented to situation, place, and person. She has no expressive or rec eptive aphasias. Cranial nerves 2 through 12 intact. Motor examination of the upper and lower extre mities 5/5 proximally and distally. Sensory exam intact in upper and lower extremities. Coordinatio n intact in upper and lower extremities. Gait with normal stance right arm swing. Reflexes 2+ in up per and lower extremities. Assessment: Ms. Borjas is a 32-year-old patient with possible complicated migraine. However, she di d have a fever and that has resolved. She has had a negative infectious workup. She did receive ant ibiotics. In addition, she has received aspirin 81 mg and Lipitor 40 mg at bedtime. Plan: She is currently discharged and will follow up in Dr. Villafuerte's office in 1 to 2 months. Con tinue the aspirin 81 mg daily. Continue Lipitor 40 mg at bedtime. Maintain a blood pressure diary. Drink 8 glasses of water daily. Engage in 30 minutes of brisk aerobic exercise daily. Maintain a headache diary and follow up with Dr. Villafuerte. DAVID/RAUDEL Voice ID: [id number] Report ID: [id number]
--- NOTE | 2022-08-29 06:49 | ECHO ---
HEIGHT: 5 ft 3 in WEIGHT: 180 lb 0.119 oz DATE OF STUDY: 08/28/[address]: Fidencio Meyers NP 2-DIMENSIONAL: YES M.MODE: YES DOPPLER: YES COLOR FLOW: YES TDS: PORTABLE: YES DEFINITY: BUBBLE STUDY: DIAGNOSIS: FEVER, RIGHT SIDE WEAKNESS CARDIAC HISTORY: CATHERIZATION: NO SURGERY: NO PROSTHETIC VALVE: NO PACEMAKER: NO MEASUREMENTS (cm) DIASTOLIC (NORMALS) SYSTOLIC (NORMALS) IVSd 0.9 (0.6-1.2) LA Diam 2.2 (1.9-4.0) LVEF 57% LVIDd 2.9 (3.5-5.7) LVIDs 2.1 (2.0-3.5) %FS 28% LVPWd 0.9 (0.6-1.2) Ao Diam 2.3 (2.0-3.7) 2 DIMENSIONAL ASSESSMENT: RIGHT ATRIUM: NORMAL LEFT ATRIUM: NORMAL RIGHT VENTRICLE: NORMAL LEFT VENTRICLE: NORMAL TRICUSPID VALVE: NORMAL MITRAL VALVE: NORMAL PULMONIC VALVE: NORMAL AORTIC VALVE: NORMAL PERICARDIAL EFFUSION: NONE AORTIC ROOT: NORMAL LEFT VENTRICULAR WALL MOTION: NORMAL DOPPLER/COLOR FLOW: NORMAL COMMENTS: 1. NORMAL LEFT VENTRICULAR EJECTION FRACTION 55-60% 2. NORMAL WALL MOTION 3. POOR WINDOWS TECHNOLOGIST: SANTIAGO PENNINGTON
== END 2022-08-28 18:01 | disposition home or self-care (01) ==
LOC: ER 21:16 → ERHOLD 08-28 03:17 → 4TH 08-28 03:38
PROVIDERS: ADMIT Hospitalist; ATTEND Hospitalist
DX: R53.1 Weakness (principal); R51.9 Headache, unspecified; R50.9 Fever, unspecified; Z20.822 Contact with and (suspected) exposure to COVID-19; Z23 Encounter for immunization; Z88.6 Allergy status to analgesic agent
CPT/HCPCS: 93005; 93306; 87040 ×2; 87070; 85025 ×2; 80048 ×2; 36415 ×2; 86308; 81025; 80061; 80076; 87081; 83605; 84443 ×2; 84484; 84439; 84145; 83880; 0241U; 80307; 70450; 71275; 70496; 70498; 71045; 70553; 70544; 70549; 97161; Q9967 ×2; A9577; J3370 ×3; J7050 ×2; J7040; J7030 ×3; J2405; J0696 ×2; 81003; 81015; G0378; J1650; J3101